=== PATIENT | female | born 1965 | race Caucasian/White ===

== ENCOUNTER 2017-02-20 14:15 | Emergency (ER) | payer MEDICAID ==
[~2017-02-20] VITALS: Ht 167.6 cm; Wt 84.1 kg
[~2017-02-20 14:15] MED LIST: ATOR10TA84 PO; INSLAN SQ; INSNOV SQ; LEVO50TA4 PO; LISI-660 PO; METF500T4 PO; QUET400T PO; SERT50TA12 PO
[2017-02-20] MEDS ORDERED: LAMO25 PO (14:18)
[2017-02-20] MEDS ORDERED: TRAZ-144 PO (14:18)
[2017-02-20 14:28] LABS: GLUCOSE,POINT OF CARE 428 MG/DL (70-110)
[2017-02-20 14:45] LABS: BASOPHILS % (AUTO) 0.4 % (0.0-2.0); EOSINOPHILS % (AUTO) 0.6 % (1.0-6.0); HEMATOCRIT 42.8 % (36-46); HEMOGLOBIN 14.4 g/dL (12.0-16.0); LYMPHOCYTES % (AUTO) 23.1 % (22.0-44.0); MEAN CORPUSCULAR HEMOGLOBIN 28.5 pg (26.0-34.0); MEAN CORPUSCULAR HGB CONC 33.6 G/dL (31.0-37.0); MEAN CORPUSCULAR VOLUME 85 fL (80-100); MONOCYTES # (AUTO) 0.4 K/uL (0.1-1.0); MONOCYTES % (AUTO) 5.1 % (2.0-9.0); NEUTROPHILS # (AUTO) 6.1 K/uL (1.8-7.7); NEUTROPHILS % (AUTO) 70.8 % (40.0-70.0); PLATELET COUNT (AUTO) 185 K/uL (150-450); RED BLOOD CELL COUNT(AUTO) 5.06 MIL/uL (4.00-5.20); RED CELL DISTRIBUTION WIDTH 14.2 % (11.5-14.5); WHITE BLOOD COUNT (AUTO) 8.7 K/uL (4.5-11.0)
[2017-02-20 15:12] LABS: APPEARANCE,URINE CLEAR (CLEAR); GLUCOSE, URINE (UA) >=1000 mg/dL (NEGATIVE); KETONES,URINE NEGATIVE (NEGATIVE); LEUKOCYTE ESTERASE ,URINE NEGATIVE (NEGATIVE); OCCULT BLOOD,URINE NEGATIVE (NEGATIVE); PH,URINE 5.5 (5.0-8.0); PROTEIN,URINE NEGATIVE (NEGATIVE)
[2017-02-20 15:23] LABS: RBC,URINE 0-2 /HPF (0-2); SQUAMOUS EPITHELIAL CELL,UR Moderate /LPF (None Seen); WBC,URINE 0-2 /HPF (0-5)
[2017-02-20 15:42] LABS: ALBUMIN 3.7 g/dL (3.4-5.0); BILIRUBIN,TOTAL 0.5 mg/dL (0.1-1.0); CALCIUM, TOTAL 9.7 mg/dL (8.8-10.5); POTASSIUM 4.8 mmol/L (3.5-5.1); TOTAL PROTEIN, SERUM 7.9 g/dL (6.4-8.2)
[2017-02-20] MEDS ORDERED: SODIUM CHLORIDE 0.9% 1,000 ML IV ONE ×2 (16:00→17:45)
[2017-02-20] MEDS ORDERED: INSULIN REGULAR, HUMAN 100 UNITS/ML IVP ONE ×2 (16:00→19:15)
[2017-02-20 16:56] LABS: THYROID STIMULATING HORMONE 2.73 uIU/mL (0.36-3.74)
[2017-02-20] MEDS ORDERED: ONDANSETRON HCL 4 MG/2 ML VIAL IVP ONE (17:15)
[2017-02-20] MEDS ORDERED: DONNATAL/LIDOCAINE/MAALOX 55 ML BOTTLE PO ONE (17:15)
[2017-02-20 17:37] LABS: GLUCOSE,POINT OF CARE 258 MG/DL (70-110)
[2017-02-20 18:42] LABS: GLUCOSE,POINT OF CARE 252 MG/DL (70-110)
[2017-02-20 19:32] LABS: GLUCOSE,POINT OF CARE 236 MG/DL (70-110)
[2017-02-20 20:17] LABS: GLUCOSE,POINT OF CARE 261 MG/DL (70-110)
[2017-02-20 21:02] LABS: GLUCOSE,POINT OF CARE 228 MG/DL (70-110)
[2017-02-20 21:14] VITALS: BP 123/72
== END 2017-02-20 21:17 | disposition home or self-care (01) ==
LOC: EMS 14:16
DX: E11.65 Type 2 diabetes mellitus with hyperglycemia (principal); E03.9 Hypothyroidism, unspecified; F20.9 Schizophrenia, unspecified; R11.2 Nausea with vomiting, unspecified; R19.7 Diarrhea, unspecified
CPT/HCPCS: 36415; 80053; 81001; 82962; 84443; 85025; 96361; 96374; 96375; 96376; 99285; J1815; J2405; J7030; Z7610; 99284

== ENCOUNTER 2017-03-26 15:09 | Inpatient (IN) | payer MEDICAID ==
[~2017-03-26] VITALS: Ht 167.6 cm; Wt 86.9 kg
[~2017-03-26 15:09] MED LIST changes: +LAMO25 PO; -QUET400T PO; +TRAZ-144 PO
[2017-03-26 15:32] LABS: BASOPHILS # (AUTO) 0.04 K/uL (0.00-0.20); BASOPHILS % (AUTO) 0.5 % (0.0-2.0); EOSINOPHILS # (AUTO) 0.08 K/uL (0.00-0.70); EOSINOPHILS % (AUTO) 1.09 % (1.0-6.0); GLUCOSE,POINT OF CARE 377 MG/DL (70-110); HEMATOCRIT 42.7 % (36-46); LYMPHOCYTES # (AUTO) 1.9 K/uL (1.0-4.8); LYMPHOCYTES % (AUTO) 25.4 % (22.0-44.0); MEAN CORPUSCULAR HEMOGLOBIN 28.1 pg (26.0-34.0); MEAN CORPUSCULAR HGB CONC 32.8 G/dL (31.0-37.0); MEAN CORPUSCULAR VOLUME 86 fL (80-100); MONOCYTES # (AUTO) 0.5 K/uL (0.1-1.0); MONOCYTES % (AUTO) 6.2 % (2.0-9.0); NEUTROPHILS # (AUTO) 4.9 K/uL (1.8-7.7); NEUTROPHILS % (AUTO) 66.9 % (40.0-70.0); PLATELET COUNT (AUTO) 178 K/uL (150-450); RED BLOOD CELL COUNT(AUTO) 4.98 MIL/uL (4.00-5.20); WHITE BLOOD COUNT (AUTO) 7.3 K/uL (4.5-11.0)
[2017-03-26 15:41] LABS: ANION GAP 11 mmol/L (8-16); CALCIUM, TOTAL 8.9 mg/dL (8.8-10.5); CARBON DIOXIDE 24 mmol/L (22-29); CHLORIDE 100 mmol/L (98-107); GLOMERULAR FILTR. RATE CALC 48 mL/min (>60); POTASSIUM 4.3 mmol/L (3.5-5.1); SODIUM SERUM 135 mmol/L (136-145); UREA NITROGEN, BLOOD 16 mg/dL (7-18)
[2017-03-26 15:46] LABS: ALANINE AMINOTRANSFERASE 27 U/L (12-78); ALBUMIN 3.8 g/dL (3.4-5.0); ASPARTATE AMINOTRANSFERASE 18 U/L (15-37); BILIRUBIN,TOTAL 0.4 mg/dL (0.1-1.0)
[2017-03-26] MEDS ORDERED: MAGNESIUM HYDROXIDE SUSPENSION 30 ML UDCUP PO PRN (16:30)
[2017-03-26] MEDS ORDERED: INSULIN REGULAR, HUMAN 100 UNITS/ML SQ ONE (16:30)
[2017-03-26] MEDS ORDERED: LOPERAMIDE HCL 2 MG CAPSULE PO PRN (16:30)
[2017-03-26] MEDS ORDERED: GuaiFENesin/D-METHORPHAN [SUGAR-FREE] 200-20MG/10 ML SYRUP UDCUP PO PRN (16:30)
[2017-03-26] MEDS ORDERED: TUBERCULIN, PURIFIED PROTEIN DERIVATIVE 5 TU/0.1 ML SYG ID ONE (16:30)
[2017-03-26] MEDS ORDERED: MAG HYDROX/AL HYDROX/SIMETH ES 30 ML SUSPENSION UDCUP PO PRN (16:30)
[2017-03-26] MEDS ORDERED: DiphenhydrAMINE HCL 50 MG CAPSULE PO ONE (16:30)
[2017-03-26] MEDS ORDERED: QUEtiapine FUMARATE 100 MG TABLET PO PRN (16:30)
[2017-03-26] MEDS ORDERED: PROMETHAZINE HCL 25 MG TABLET PO PRN (16:30)
[2017-03-26] MEDS ORDERED: ACETAMINOPHEN 325 MG TABLET PO PRN (16:30)
[2017-03-26] MEDS ORDERED: HydrOXYzine PAMOATE 50 MG CAPSULE PO PRN (16:30)
[2017-03-26] MEDS ORDERED: LORazepam 2 MG TABLET PO ONE (16:30)
[2017-03-26] MEDS ORDERED: ZOLPIDEM TARTRATE 10 MG TABLET PO PRN (16:30)
[2017-03-26] MEDS ORDERED: HALOPERIDOL 5 MG TABLET PO ONE (16:30)
[2017-03-26 16:57] LABS: APPEARANCE,URINE CLEAR (CLEAR); GLUCOSE, URINE (UA) >=1000 mg/dL (NEGATIVE); KETONES,URINE NEGATIVE (NEGATIVE); LEUKOCYTE ESTERASE ,URINE NEGATIVE (NEGATIVE); OCCULT BLOOD,URINE NEGATIVE (NEGATIVE); PROTEIN,URINE NEGATIVE (NEGATIVE)
[2017-03-26 16:58] LABS: ADD UA MICROSCOPIC YES
[2017-03-26 17:09] LABS: SQUAMOUS EPITHELIAL CELL,UR Moderate /LPF (None Seen)
[2017-03-26 17:11] LABS: RBC,URINE 0-2 /HPF (0-2)
[2017-03-26 17:43] LABS: GLUCOSE,POINT OF CARE 332 MG/DL (70-110)
[2017-03-26] MEDS: THIAMINE HCL 100 MG TABLET PO SCH (19:40)
[2017-03-26 19:42] LABS: GLUCOSE COMMENT 1 Doctor Notified; GLUCOSE,POINT OF CARE 272 MG/DL (70-110)
[2017-03-26] MEDS ORDERED: INFLUENZA VIRUS VACCINE QVS 2017-18 (3YR+)/PF 60 MCG/0.5 ML SYRINGE IM ONE (20:45)
[2017-03-26 20:47] VITALS: BP 128/77
[2017-03-26] MEDS ORDERED: QUEtiapine FUMARATE 200 MG TABLET PO SCH (21:00)
[2017-03-26] MEDS ORDERED: GLUCAGON,HUMAN RECOMBINANT 1 MG VIAL IM PRN (22:00)
[2017-03-27] MEDS: INSULIN ASPART 100 UNITS/ML SQ PRN ×4 (06:29→20:37)
[2017-03-27] MEDS: LEVOTHYROXINE SODIUM 50 MCG TABLET PO SCH (06:33)
[2017-03-27 06:34] LABS: GLUCOSE,POINT OF CARE 321 MG/DL (70-110)
[2017-03-27 06:36] VITALS: BP 116/67
[2017-03-27] MEDS: MetFORMIN HCL 500 MG TABLET PO SCH ×2 (06:49→16:35)
[2017-03-27 08:00] VITALS: BP 97/63
[2017-03-27 08:20] LABS: BASOPHILS # (AUTO) 0.03 K/uL (0.00-0.20); BASOPHILS % (AUTO) 0.4 % (0.0-2.0); EOSINOPHILS # (AUTO) 0.08 K/uL (0.00-0.70); EOSINOPHILS % (AUTO) 1.09 % (1.0-6.0); HEMATOCRIT 37.6 % (36-46); HEMOGLOBIN 12.4 g/dL (12.0-16.0); LYMPHOCYTES # (AUTO) 2.6 K/uL (1.0-4.8); MEAN CORPUSCULAR HEMOGLOBIN 28.5 pg (26.0-34.0); MEAN CORPUSCULAR HGB CONC 33.1 G/dL (31.0-37.0); MEAN CORPUSCULAR VOLUME 86 fL (80-100); MONOCYTES # (AUTO) 0.5 K/uL (0.1-1.0); MONOCYTES % (AUTO) 6.3 % (2.0-9.0); NEUTROPHILS # (AUTO) 4.5 K/uL (1.8-7.7); NEUTROPHILS % (AUTO) 58.2 % (40.0-70.0); PLATELET COUNT (AUTO) 145 K/uL (150-450); RED BLOOD CELL COUNT(AUTO) 4.36 MIL/uL (4.00-5.20); WHITE BLOOD COUNT (AUTO) 7.7 K/uL (4.5-11.0)
[2017-03-27 08:45] LABS: HEMOGLOBIN A1C 10.9 % (4.5-6.2)
[2017-03-27] MEDS: LamoTRIgine 25 MG TABLET PO SCH (08:58)
[2017-03-27] MEDS: MULTIVITAMINS WITH MINERALS, THERAPEUTIC TABLET PO SCH (08:58)
[2017-03-27] MEDS: LISINOPRIL 5 MG TABLET PO SCH ×2 (08:58→16:35)
[2017-03-27] MEDS: FOLIC ACID 1 MG TABLET PO SCH (08:58)
[2017-03-27] MEDS: INSULIN DETEMIR 100 UNITS/ML SQ SCH (08:58)
[2017-03-27] MEDS: THIAMINE HCL 100 MG TABLET PO SCH ×2 (09:00→16:35)
[2017-03-27] MEDS ORDERED: ATORVASTATIN CALCIUM 10 MG TABLET PO SCH (09:00)
[2017-03-27 09:31] LABS: ALANINE AMINOTRANSFERASE 28 U/L (12-78); ALBUMIN 3.1 g/dL (3.4-5.0); ANION GAP 6 mmol/L (8-16); ASPARTATE AMINOTRANSFERASE 16 U/L (15-37); BILIRUBIN,TOTAL 0.4 mg/dL (0.1-1.0); CALCIUM, TOTAL 8.3 mg/dL (8.8-10.5); CARBON DIOXIDE 26 mmol/L (22-29); CHLORIDE 105 mmol/L (98-107); CHOL/HDL RATIO 5.2 (3.9-5.7); CREATININE 0.85 mg/dL (0.60-1.30); GLOMERULAR FILTR. RATE CALC > 60 mL/min (>60); POTASSIUM 4.2 mmol/L (3.5-5.1); SODIUM SERUM 137 mmol/L (136-145); THYROID STIMULATING HORMONE 4.12 uIU/mL (0.36-3.74); TOTAL PROTEIN, SERUM 6.5 g/dL (6.4-8.2); UREA NITROGEN, BLOOD 18 mg/dL (7-18)
[2017-03-27 11:38] LABS: GLUCOSE COMMENT 1 Received Meds; GLUCOSE,POINT OF CARE 345 MG/DL (70-110)
[2017-03-27 16:20] VITALS: BP 117/64
[2017-03-27 16:44] LABS: GLUCOSE COMMENT 1 Received Meds; GLUCOSE,POINT OF CARE 247 MG/DL (70-110)
[2017-03-27 20:12] LABS: GLUCOSE COMMENT 1 Received Meds; GLUCOSE,POINT OF CARE 193 MG/DL (70-110)
[2017-03-27] MEDS: SIMVASTATIN 20 MG TABLET PO SCH (20:28)
[2017-03-27] MEDS ORDERED: QUEtiapine FUMARATE 200 MG TABLET PO SCH (21:00)
[2017-03-28] MEDS: LEVOTHYROXINE SODIUM 50 MCG TABLET PO SCH (06:37)
[2017-03-28] MEDS: MetFORMIN HCL 500 MG TABLET PO SCH ×2 (06:37→17:07)
[2017-03-28] MEDS: INSULIN ASPART 100 UNITS/ML SQ PRN ×3 (06:38→17:53)
[2017-03-28 06:44] LABS: GLUCOSE COMMENT 1 Received Meds; GLUCOSE,POINT OF CARE 261 MG/DL (70-110)
[2017-03-28 09:00] VITALS: BP 102/61
[2017-03-28] MEDS: MULTIVITAMINS WITH MINERALS, THERAPEUTIC TABLET PO SCH (09:38)
[2017-03-28] MEDS: THIAMINE HCL 100 MG TABLET PO SCH ×2 (09:38→17:07)
[2017-03-28] MEDS: FOLIC ACID 1 MG TABLET PO SCH (09:38)
[2017-03-28] MEDS: LISINOPRIL 5 MG TABLET PO SCH ×2 (09:38→17:07)
[2017-03-28] MEDS: NALTREXONE HCL 50 MG TABLET PO SCH (09:38)
[2017-03-28] MEDS: LamoTRIgine 25 MG TABLET PO SCH (09:38)
[2017-03-28] MEDS: INSULIN DETEMIR 100 UNITS/ML SQ SCH (09:43)
[2017-03-28 12:08] LABS: GLUCOSE,POINT OF CARE 344 MG/DL (70-110)
[2017-03-28 16:33] LABS: GLUCOSE,POINT OF CARE 321 MG/DL (70-110)
[2017-03-28] MEDS: LORazepam 2 MG TABLET PO PRN (19:22)
[2017-03-28] MEDS: SIMVASTATIN 20 MG TABLET PO SCH (20:36)
[2017-03-28 20:40] LABS: GLUCOSE,POINT OF CARE 219 MG/DL (70-110)
[2017-03-28] MEDS ORDERED: QUEtiapine FUMARATE 300 MG TABLET PO SCH (21:00)
[2017-03-29 06:04] VITALS: BP 100/60
[2017-03-29] MEDS: LEVOTHYROXINE SODIUM 50 MCG TABLET PO SCH (06:07)
[2017-03-29] MEDS: MetFORMIN HCL 500 MG TABLET PO SCH ×2 (06:07→17:54)
[2017-03-29] MEDS: INSULIN ASPART 100 UNITS/ML SQ PRN ×4 (07:08→21:00)
[2017-03-29 08:46] VITALS: BP 122/81
[2017-03-29] MEDS: LISINOPRIL 5 MG TABLET PO SCH ×2 (09:08→17:54)
[2017-03-29] MEDS: NALTREXONE HCL 50 MG TABLET PO SCH (09:08)
[2017-03-29] MEDS: MULTIVITAMINS WITH MINERALS, THERAPEUTIC TABLET PO SCH (09:08)
[2017-03-29] MEDS: LamoTRIgine 25 MG TABLET PO SCH (09:08)
[2017-03-29] MEDS: THIAMINE HCL 100 MG TABLET PO SCH ×2 (09:09→17:54)
[2017-03-29] MEDS: FOLIC ACID 1 MG TABLET PO SCH (09:09)
[2017-03-29] MEDS: INSULIN DETEMIR 100 UNITS/ML SQ SCH (09:11)
[2017-03-29] MEDS: LORazepam 2 MG TABLET PO PRN ×2 (09:16→14:21)
[2017-03-29 11:47] LABS: GLUCOSE,POINT OF CARE 314 MG/DL (70-110)
[2017-03-29 12:00] LABS: GLUCOSE,POINT OF CARE 372 MG/DL (70-110)
[2017-03-29 19:45] LABS: GLUCOSE COMMENT 1 Received Meds; GLUCOSE,POINT OF CARE 279 MG/DL (70-110)
[2017-03-29] MEDS: QUEtiapine FUMARATE 200 MG TABLET PO SCH (21:42)
[2017-03-29] MEDS: SIMVASTATIN 20 MG TABLET PO SCH (21:42)
[2017-03-30 03:48] VITALS: BP 114/82
[2017-03-30 05:00] LABS: GLUCOSE COMMENT 1 Received Meds; GLUCOSE,POINT OF CARE 288 MG/DL (70-110)
[2017-03-30] MEDS: MetFORMIN HCL 500 MG TABLET PO SCH ×2 (06:41→16:41)
[2017-03-30] MEDS: LEVOTHYROXINE SODIUM 50 MCG TABLET PO SCH (06:41)
[2017-03-30] MEDS: INSULIN ASPART 100 UNITS/ML SQ PRN ×4 (06:42→20:46)
[2017-03-30 08:24] VITALS: BP 100/58
[2017-03-30] MEDS: LamoTRIgine 25 MG TABLET PO SCH (08:53)
[2017-03-30] MEDS: THIAMINE HCL 100 MG TABLET PO SCH ×2 (08:53→16:41)
[2017-03-30] MEDS: MULTIVITAMINS WITH MINERALS, THERAPEUTIC TABLET PO SCH (08:53)
[2017-03-30] MEDS: NALTREXONE HCL 50 MG TABLET PO SCH (08:53)
[2017-03-30] MEDS: FOLIC ACID 1 MG TABLET PO SCH (08:53)
[2017-03-30 09:00] VITALS: BP 94/63
[2017-03-30] MEDS: LISINOPRIL 5 MG TABLET PO SCH ×2 (09:00→16:41)
[2017-03-30] MEDS: INSULIN DETEMIR 100 UNITS/ML SQ SCH (09:19)
[2017-03-30 11:48] LABS: GLUCOSE,POINT OF CARE 257 MG/DL (70-110)
[2017-03-30 11:48] LABS: GLUCOSE,POINT OF CARE 314 MG/DL (70-110)
[2017-03-30 16:00] VITALS: BP 108/68
[2017-03-30 16:48] LABS: GLUCOSE,POINT OF CARE 259 MG/DL (70-110)
[2017-03-30] MEDS: SIMVASTATIN 20 MG TABLET PO SCH (20:25)
[2017-03-30] MEDS: QUEtiapine FUMARATE 200 MG TABLET PO SCH (20:25)
[2017-03-30 21:02] LABS: GLUCOSE,POINT OF CARE 223 MG/DL (70-110)
[2017-03-31 00:13] LABS: GLUCOSE,POINT OF CARE 279 MG/DL (70-110)
[2017-03-31 06:32] VITALS: BP 106/70
[2017-03-31 06:47] LABS: GLUCOSE,POINT OF CARE 312 MG/DL (70-110)
[2017-03-31] MEDS: MetFORMIN HCL 500 MG TABLET PO SCH ×2 (06:51→16:16)
[2017-03-31] MEDS: LEVOTHYROXINE SODIUM 50 MCG TABLET PO SCH (06:51)
[2017-03-31] MEDS: INSULIN ASPART 100 UNITS/ML SQ PRN ×4 (06:52→21:22)
[2017-03-31 08:21] VITALS: BP 99/60
[2017-03-31] MEDS: LamoTRIgine 25 MG TABLET PO SCH (09:24)
[2017-03-31] MEDS: NALTREXONE HCL 50 MG TABLET PO SCH (09:24)
[2017-03-31] MEDS: LISINOPRIL 5 MG TABLET PO SCH ×2 (09:24→16:16)
[2017-03-31] MEDS: MULTIVITAMINS WITH MINERALS, THERAPEUTIC TABLET PO SCH (09:24)
[2017-03-31] MEDS: FOLIC ACID 1 MG TABLET PO SCH (09:24)
[2017-03-31] MEDS: THIAMINE HCL 100 MG TABLET PO SCH ×2 (09:24→16:16)
[2017-03-31] MEDS: INSULIN DETEMIR 100 UNITS/ML SQ SCH (09:27)
[2017-03-31 11:33] LABS: GLUCOSE,POINT OF CARE 397 MG/DL (70-110)
[2017-03-31 16:04] VITALS: BP 126/64
[2017-03-31] MEDS: LORazepam 2 MG TABLET PO PRN (16:16)
[2017-03-31 16:47] LABS: GLUCOSE COMMENT 1 Received Meds; GLUCOSE,POINT OF CARE 290 MG/DL (70-110)
[2017-03-31] MEDS: SIMVASTATIN 20 MG TABLET PO SCH (20:10)
[2017-03-31] MEDS: QUEtiapine FUMARATE 200 MG TABLET PO SCH (20:10)
[2017-03-31 20:57] LABS: GLUCOSE COMMENT 1 Received Meds; GLUCOSE,POINT OF CARE 356 MG/DL (70-110)
[2017-04-01 06:38] LABS: GLUCOSE COMMENT 1 Received Meds; GLUCOSE,POINT OF CARE 270 MG/DL (70-110)
[2017-04-01] MEDS: LEVOTHYROXINE SODIUM 50 MCG TABLET PO SCH (06:43)
[2017-04-01] MEDS: INSULIN ASPART 100 UNITS/ML SQ PRN ×4 (06:43→20:35)
[2017-04-01] MEDS: MetFORMIN HCL 500 MG TABLET PO SCH ×2 (06:43→16:44)
[2017-04-01 08:22] VITALS: BP 122/66
[2017-04-01] MEDS: NALTREXONE HCL 50 MG TABLET PO SCH (09:12)
[2017-04-01] MEDS: LISINOPRIL 5 MG TABLET PO SCH ×2 (09:12→16:44)
[2017-04-01] MEDS: FOLIC ACID 1 MG TABLET PO SCH (09:12)
[2017-04-01] MEDS: THIAMINE HCL 100 MG TABLET PO SCH ×2 (09:12→16:44)
[2017-04-01] MEDS: MULTIVITAMINS WITH MINERALS, THERAPEUTIC TABLET PO SCH (09:12)
[2017-04-01] MEDS: LamoTRIgine 25 MG TABLET PO SCH (09:12)
[2017-04-01] MEDS: INSULIN DETEMIR 100 UNITS/ML SQ SCH (09:16)
[2017-04-01 11:22] LABS: GLUCOSE,POINT OF CARE 327 MG/DL (70-110)
[2017-04-01 16:12] VITALS: BP 116/69
[2017-04-01 16:58] LABS: GLUCOSE COMMENT 1 Received Meds; GLUCOSE,POINT OF CARE 250 MG/DL (70-110)
[2017-04-01] MEDS: SIMVASTATIN 20 MG TABLET PO SCH (20:14)
[2017-04-01] MEDS: QUEtiapine FUMARATE 200 MG TABLET PO SCH (20:14)
[2017-04-01 20:28] LABS: GLUCOSE COMMENT 1 Received Meds; GLUCOSE,POINT OF CARE 344 MG/DL (70-110)
[2017-04-01] MEDS ORDERED: QUEtiapine FUMARATE 200 MG TABLET PO SCH (21:00)
[2017-04-02 02:08] VITALS: BP 108/71
[2017-04-02 06:08] LABS: GLUCOSE COMMENT 1 Received Meds; GLUCOSE,POINT OF CARE 309 MG/DL (70-110)
[2017-04-02] MEDS: MetFORMIN HCL 500 MG TABLET PO SCH ×2 (06:27→16:35)
[2017-04-02] MEDS: LEVOTHYROXINE SODIUM 50 MCG TABLET PO SCH (06:27)
[2017-04-02] MEDS: INSULIN ASPART 100 UNITS/ML SQ PRN ×4 (06:43→21:16)
[2017-04-02 08:26] VITALS: BP 101/51
[2017-04-02] MEDS: NALTREXONE HCL 50 MG TABLET PO SCH (08:38)
[2017-04-02] MEDS: LamoTRIgine 25 MG TABLET PO SCH (08:38)
[2017-04-02] MEDS: THIAMINE HCL 100 MG TABLET PO SCH ×2 (08:38→16:35)
[2017-04-02] MEDS: MULTIVITAMINS WITH MINERALS, THERAPEUTIC TABLET PO SCH (08:38)
[2017-04-02] MEDS: LISINOPRIL 5 MG TABLET PO SCH ×2 (08:38→16:35)
[2017-04-02] MEDS: FOLIC ACID 1 MG TABLET PO SCH (08:38)
[2017-04-02] MEDS: INSULIN DETEMIR 100 UNITS/ML SQ SCH (08:41)
[2017-04-02 11:57] LABS: GLUCOSE COMMENT 1 Received Meds; GLUCOSE,POINT OF CARE 286 MG/DL (70-110)
[2017-04-02] MEDS ORDERED: QUET200T29 PO (15:00)
[2017-04-02] MEDS ORDERED: LAMO25 PO (15:00)
[2017-04-02] MEDS ORDERED: NALT50TA PO (15:00)
[2017-04-02] MEDS: LORazepam 2 MG TABLET PO PRN (16:35)
[2017-04-02 16:48] LABS: GLUCOSE,POINT OF CARE 396 MG/DL (70-110)
[2017-04-02 16:50] VITALS: BP 113/67
[2017-04-02] MEDS: SIMVASTATIN 20 MG TABLET PO SCH (20:35)
[2017-04-02 20:47] LABS: GLUCOSE,POINT OF CARE 355 MG/DL (70-110)
[2017-04-02] MEDS ORDERED: QUEtiapine FUMARATE 200 MG TABLET PO SCH ×2 (21:00)
[2017-04-03 01:28] VITALS: BP 109/55
[2017-04-03] MEDS ORDERED: THIA100 PO (04:28)
[2017-04-03] MEDS ORDERED: SIMV-260 PO (04:28)
[2017-04-03] MEDS ORDERED: FOLI1 PO (04:28)
[2017-04-03] MEDS ORDERED: NALT50TA6 PO (04:28)
[2017-04-03] MEDS ORDERED: QUET200T PO (04:28)
[2017-04-03] MEDS ORDERED: LAMO25 PO (04:28)
[2017-04-03 06:18] LABS: GLUCOSE,POINT OF CARE 336 MG/DL (70-110)
[2017-04-03] MEDS: LEVOTHYROXINE SODIUM 50 MCG TABLET PO SCH (06:47)
[2017-04-03] MEDS: MetFORMIN HCL 500 MG TABLET PO SCH (06:47)
[2017-04-03] MEDS: INSULIN ASPART 100 UNITS/ML SQ PRN ×2 (06:57→10:58)
[2017-04-03] MEDS: FOLIC ACID 1 MG TABLET PO SCH (08:50)
[2017-04-03] MEDS: LamoTRIgine 25 MG TABLET PO SCH (08:50)
[2017-04-03] MEDS: NALTREXONE HCL 50 MG TABLET PO SCH (08:51)
[2017-04-03] MEDS: THIAMINE HCL 100 MG TABLET PO SCH (08:51)
[2017-04-03] MEDS: MULTIVITAMINS WITH MINERALS, THERAPEUTIC TABLET PO SCH (08:51)
[2017-04-03] MEDS: LISINOPRIL 5 MG TABLET PO SCH (08:51)
[2017-04-03] MEDS: INSULIN DETEMIR 100 UNITS/ML SQ SCH (08:57)
[2017-04-03 09:03] LABS: GLUCOSE,POINT OF CARE 317 MG/DL (70-110)
[2017-04-03 09:07] VITALS: BP 125/62
[2017-04-03] MEDS ORDERED: LEVO50TA11 PO (09:49)
[2017-04-03 11:02] LABS: GLUCOSE,POINT OF CARE 349 MG/DL (70-110)
== END 2017-04-03 13:30 | disposition home or self-care (01) | DRG 750 ==
LOC: EMS 15:14 → B3A 17:10 → B2S 04-02 18:19
PROVIDERS: ADMIT Psychiatry & Neurology Psychiatry; ATTEND Psychiatry & Neurology Psychiatry
DX: F25.9 Schizoaffective disorder, unspecified (principal); E11.9 Type 2 diabetes mellitus without complications; R45.851 Suicidal ideations; I10 Essential (primary) hypertension; E03.9 Hypothyroidism, unspecified; E66.9 Obesity, unspecified; E78.5 Hyperlipidemia, unspecified; F17.200 Nicotine dependence, unspecified, uncomplicated; F31.9 Bipolar disorder, unspecified; Z68.29 Body mass index [BMI] 29.0-29.9, adult; Z79.899 Other long term (current) drug therapy; Z90.49 Acquired absence of other specified parts of digestive tract; Z28.21 Immunization not carried out because of patient refusal
CPT/HCPCS: 82962; 83036; 84439; 84443; 86592; 96372; 99285; G0480; J1815

== ENCOUNTER 2017-11-28 19:16 | Inpatient (IN) | payer MEDICAID ==
[~2017-11-28] VITALS: Ht 167.6 cm; Wt 95.4 kg
[~2017-11-28 19:16] MED LIST changes: -ATOR10TA84 PO; +FOLI1 PO; -INSNOV SQ; +LEVO50TA11 PO; -LEVO50TA4 PO; +METF-444 PO; -METF500T4 PO; +NALT50TA PO; +NALT50TA6 PO; +QUET200T PO; +QUET200T29 PO; -SERT50TA12 PO; +SIMV-260 PO; -TRAZ-144 PO
[2017-11-28 19:33] LABS: GLUCOSE,POINT OF CARE 375 MG/DL (70-110)
[2017-11-28] MEDS ORDERED: RISP2 PO (20:08)
[2017-11-28] MEDS ORDERED: GABA-529 PO (20:08)
[2017-11-28] MEDS ORDERED: INSU100V SQ (20:08)
[2017-11-28] MEDS ORDERED: LAMO25 PO (20:08)
[2017-11-28] MEDS ORDERED: ASPI-556 PO (20:08)
[2017-11-28] MEDS ORDERED: TRAZ-147 PO (20:08)
[2017-11-28] MEDS ORDERED: ARIP10TA8 PO (20:08)
[2017-11-28] MEDS ORDERED: LISI-661 PO (20:08)
[2017-11-28] MEDS ORDERED: ATOR40TA28 PO (20:08)
[2017-11-28] MEDS ORDERED: METF500T6 PO (20:08)
[2017-11-28] MEDS ORDERED: SERT100T12 PO (20:08)
[2017-11-28] MEDS ORDERED: LEVO25TA9 PO (20:08)
[2017-11-28] MEDS ORDERED: LINA5TAB PO (20:08)
[2017-11-28] MEDS ORDERED: INSU100I26 SQ (20:08)
[2017-11-28 20:11] LABS: BASOPHILS % (AUTO) 0.6 % (0.0-2.0); EOSINOPHILS % (AUTO) 1.4 % (1.0-6.0); HEMATOCRIT 39.1 % (36-46); HEMOGLOBIN 13.1 g/dL (12.0-16.0); LYMPHOCYTES # (AUTO) 1.4 K/uL (1.0-4.8); LYMPHOCYTES % (AUTO) 14.2 % (22.0-44.0); MEAN CORPUSCULAR HEMOGLOBIN 28.1 pg (26.0-34.0); MEAN CORPUSCULAR HGB CONC 33.6 G/dL (31.0-37.0); MEAN CORPUSCULAR VOLUME 84 fL (80-100); MONOCYTES # (AUTO) 0.5 K/uL (0.1-1.0); MONOCYTES % (AUTO) 5.2 % (2.0-9.0); NEUTROPHILS # (AUTO) 7.5 K/uL (1.8-7.7); NEUTROPHILS % (AUTO) 78.6 % (40.0-70.0); PLATELET COUNT (AUTO) 149 K/uL (150-450); RED BLOOD CELL COUNT(AUTO) 4.67 MIL/uL (4.00-5.20)
[2017-11-28 20:52] LABS: ANION GAP 6 mmol/L (8-16); CARBON DIOXIDE 27 mmol/L (22-29); CHLORIDE 102 mmol/L (98-107); CREATININE 1.19 mg/dL (0.60-1.30); GLOMERULAR FILTR. RATE CALC 48 mL/min (>60); GLUCOSE,RANDOM 360 mg/dL (70-110); POTASSIUM 4.8 mmol/L (3.5-5.1); SODIUM SERUM 135 mmol/L (136-145); UREA NITROGEN, BLOOD 14 mg/dL (7-18)
[2017-11-28 20:57] LABS: AMPHET/METH SCREEN,URINE NEGATIVE (NEGATIVE); BARBITURATE SCREEN, URINE NEGATIVE (NEGATIVE); BENZODIAZEPINES SCREEN,URINE NEGATIVE (NEGATIVE); CANNABINOID SCREEN,URINE NEGATIVE (NEGATIVE); COCAINE SCREEN,URINE NEGATIVE (NEGATIVE); METHADONE SCREEN, URINE NEGATIVE (NEGATIVE); OPIATE SCREEN,URINE NEGATIVE (NEGATIVE)
[2017-11-28 20:59] LABS: ALANINE AMINOTRANSFERASE 30 U/L (12-78); ALBUMIN 3.2 g/dL (3.4-5.0); ALKALINE PHOSPHATASE 165 U/L (46-116); ASPARTATE AMINOTRANSFERASE 21 U/L (15-37); BILIRUBIN,TOTAL 0.5 mg/dL (0.1-1.0); TOTAL PROTEIN, SERUM 7.1 g/dL (6.4-8.2)
[2017-11-28 21:04] LABS: PHENCYCLIDINE SCREEN,URINE NEGATIVE (NEGATIVE)
[2017-11-28 21:22] LABS: APPEARANCE,URINE CLOUDY (CLEAR); BILIRUBIN,URINE NEGATIVE (NEGATIVE); GLUCOSE, URINE (UA) >=1000 mg/dL (NEGATIVE); KETONES,URINE NEGATIVE (NEGATIVE); LEUKOCYTE ESTERASE ,URINE NEGATIVE (NEGATIVE); NITRATE,URINE NEGATIVE (NEGATIVE); OCCULT BLOOD,URINE NEGATIVE (NEGATIVE); PROTEIN,URINE NEGATIVE (NEGATIVE); UROBILINOGEN,URINE 0.2 mg/dL (<=1.0)
[2017-11-28] MEDS ORDERED: INSULIN REGULAR, HUMAN 100 UNITS/ML SQ ONE (23:00)
[2017-11-28 23:13] LABS: BACTERIA,URINE None Seen /HPF (None Seen); RBC,URINE None Seen /HPF (0-2); SQUAMOUS EPITHELIAL CELL,UR Few /LPF (None Seen); WBC,URINE 0-2 /HPF (0-5)
[2017-11-29 00:28] LABS: GLUCOSE,POINT OF CARE 271 MG/DL (70-110)
[2017-11-29] MEDS ORDERED: HALOPERIDOL 5 MG TABLET PO PRN (03:00)
[2017-11-29] MEDS ORDERED: ZOLPIDEM TARTRATE 10 MG TABLET PO PRN (03:00)
[2017-11-29 06:38] LABS: GLUCOSE,POINT OF CARE 272 MG/DL (70-110)
[2017-11-29 08:18] LABS: CHOL/HDL RATIO 4.9 (3.9-5.7)
[2017-11-29 16:12] LABS: GLUCOMETER DEV NAME(LOC) BV2S 2; GLUCOSE,POINT OF CARE 375 MG/DL (70-110)
[2017-11-29] MEDS ORDERED: GLUCAGON,HUMAN RECOMBINANT 1 MG VIAL IM PRN (16:30)
[2017-11-29] MEDS: INSULIN LISPRO 100 UNITS/ML SQ PRN ×2 (17:00→21:00)
[2017-11-29 17:15] VITALS: BP 122/71
[2017-11-29] MEDS ORDERED: PNEUMOCOCCAL VACCINE POLYVALENT 0.5 ML VIAL [PPSV23] IM ONE (20:15)
[2017-11-29 21:43] LABS: GLUCOMETER DEV NAME(LOC) BV2S 2; GLUCOSE,POINT OF CARE 269 MG/DL (70-110)
[2017-11-29] MEDS: ATORVASTATIN CALCIUM 40 MG TABLET PO SCH (21:50)
[2017-11-30 05:51] VITALS: BP 120/82
[2017-11-30 06:24] LABS: GLUCOMETER DEV NAME(LOC) BV2S 2; GLUCOSE,POINT OF CARE 391 MG/DL (70-110)
[2017-11-30] MEDS: LEVOTHYROXINE SODIUM 25 MCG TABLET PO SCH (06:42)
[2017-11-30] MEDS: MetFORMIN HCL 500 MG TABLET PO SCH ×2 (06:42→17:44)
[2017-11-30] MEDS: INSULIN LISPRO 100 UNITS/ML SQ PRN ×4 (07:13→22:28)
[2017-11-30 08:30] VITALS: BP 124/68
[2017-11-30] MEDS: LISINOPRIL 10 MG TABLET PO SCH (08:44)
[2017-11-30] MEDS: LinaGLIPtin 5 MG TABLET PO SCH (08:45)
[2017-11-30] MEDS: LORazepam 2 MG TABLET PO PRN (09:19)
[2017-11-30 11:18] LABS: GLUCOMETER DEV NAME(LOC) BV2S 2; GLUCOSE,POINT OF CARE 261 MG/DL (70-110)
[2017-11-30] MEDS ORDERED: DOCUSATE SODIUM 100 MG CAPSULE PO PRN (13:00)
[2017-11-30] MEDS ORDERED: MAGNESIUM HYDROXIDE SUSPENSION 30 ML UDCUP PO PRN (13:00)
[2017-11-30] MEDS ORDERED: ONDANSETRON HCL 4 MG TABLET PO PRN (13:00)
[2017-11-30] MEDS ORDERED: ALBUTEROL SULFATE HFA 90 MCG/PUFF 8 GM INHALER IH PRN (13:00)
[2017-11-30] MEDS ORDERED: MAG HYDROX/AL HYDROX/SIMETH ES 30 ML SUSPENSION UDCUP PO PRN (13:00)
[2017-11-30] MEDS ORDERED: PETROLATUM,WHITE 71 GM JELLY TP PRN (13:00)
[2017-11-30] MEDS ORDERED: IBUPROFEN 400 MG TABLET PO PRN (13:00)
[2017-11-30] MEDS ORDERED: ACETAMINOPHEN 325 MG TABLET PO PRN (13:00)
[2017-11-30 16:02] VITALS: BP 115/67
[2017-11-30] MEDS: INSULIN GLARGINE,HUM.REC.ANLOG 100 UNITS/ML SQ SCH (17:41)
[2017-11-30 18:18] LABS: GLUCOMETER DEV NAME(LOC) BV2S 2; GLUCOSE,POINT OF CARE 334 MG/DL (70-110)
[2017-11-30] MEDS: RisperiDONE 2 MG TABLET PO SCH (21:38)
[2017-11-30] MEDS: ATORVASTATIN CALCIUM 40 MG TABLET PO SCH (21:38)
[2017-11-30] MEDS: TraZODone HCL 100 MG TABLET PO SCH (21:39)
[2017-12-01 00:35] VITALS: BP 104/60
[2017-12-01 06:23] LABS: GLUCOMETER DEV NAME(LOC) BV2S 2; GLUCOSE,POINT OF CARE 300 MG/DL (70-110)
[2017-12-01] MEDS: LEVOTHYROXINE SODIUM 25 MCG TABLET PO SCH (06:56)
[2017-12-01] MEDS: INSULIN LISPRO 100 UNITS/ML SQ PRN ×4 (06:57→21:03)
[2017-12-01] MEDS: MetFORMIN HCL 500 MG TABLET PO SCH ×2 (07:06→16:30)
[2017-12-01 07:33] LABS: GLUCOMETER DEV NAME(LOC) BV2S 2; GLUCOSE,POINT OF CARE 252 MG/DL (70-110)
[2017-12-01 08:00] VITALS: BP 120/68
[2017-12-01 08:23] LABS: HEMOGLOBIN A1C 8.7 % (4.5-6.2)
[2017-12-01 08:43] LABS: CHOL/HDL RATIO 5.6 (3.9-5.7); THYROID STIMULATING HORMONE 6.02 uIU/mL (0.36-3.74)
[2017-12-01] MEDS: NICOTINE 14 MG/24 HOUR PATCH TD SCH (09:00)
[2017-12-01] MEDS: LISINOPRIL 10 MG TABLET PO SCH (09:43)
[2017-12-01] MEDS: LinaGLIPtin 5 MG TABLET PO SCH (09:43)
[2017-12-01] MEDS: GABAPENTIN 400 MG CAPSULE PO SCH ×3 (09:43→16:30)
[2017-12-01] MEDS: SERTRALINE HCL 100 MG TABLET PO SCH (09:43)
[2017-12-01] MEDS: INSULIN GLARGINE,HUM.REC.ANLOG 100 UNITS/ML SQ SCH ×2 (09:47→16:41)
[2017-12-01 10:14] LABS: GLUCOMETER DEV NAME(LOC) BV2S 2; GLUCOSE,POINT OF CARE 296 MG/DL (70-110)
[2017-12-01 11:02] LABS: GLUCOMETER DEV NAME(LOC) BV2S 2; GLUCOSE,POINT OF CARE 287 MG/DL (70-110)
[2017-12-01 16:11] VITALS: BP 102/65
[2017-12-01] MEDS: LORazepam 2 MG TABLET PO PRN (16:38)
[2017-12-01] MEDS ORDERED: MetFORMIN HCL 500 MG TABLET PO SCH (17:00)
[2017-12-01 17:23] LABS: GLUCOMETER DEV NAME(LOC) BV2S 2; GLUCOSE,POINT OF CARE 317 MG/DL (70-110)
[2017-12-01] MEDS: TraZODone HCL 100 MG TABLET PO SCH (20:37)
[2017-12-01] MEDS: RisperiDONE 2 MG TABLET PO SCH (20:37)
[2017-12-01] MEDS: ATORVASTATIN CALCIUM 40 MG TABLET PO SCH (20:37)
[2017-12-01 21:03] LABS: GLUCOMETER DEV NAME(LOC) BV2S 2; GLUCOSE,POINT OF CARE 300 MG/DL (70-110)
[2017-12-02 05:40] VITALS: BP 130/71
[2017-12-02] MEDS: LEVOTHYROXINE SODIUM 25 MCG TABLET PO SCH (06:32)
[2017-12-02] MEDS: MetFORMIN HCL 500 MG TABLET PO SCH ×2 (06:32→16:49)
[2017-12-02] MEDS: INSULIN LISPRO 100 UNITS/ML SQ PRN ×4 (06:35→20:37)
[2017-12-02 07:08] LABS: GLUCOMETER DEV NAME(LOC) BV2S 2; GLUCOSE,POINT OF CARE 295 MG/DL (70-110)
[2017-12-02 08:18] VITALS: BP 123/67
[2017-12-02] MEDS: NICOTINE 14 MG/24 HOUR PATCH TD SCH (09:00)
[2017-12-02] MEDS: GABAPENTIN 400 MG CAPSULE PO SCH ×3 (09:32→16:49)
[2017-12-02] MEDS: LISINOPRIL 10 MG TABLET PO SCH (09:32)
[2017-12-02] MEDS: LinaGLIPtin 5 MG TABLET PO SCH (09:32)
[2017-12-02] MEDS: SERTRALINE HCL 100 MG TABLET PO SCH (09:33)
[2017-12-02] MEDS: INSULIN GLARGINE,HUM.REC.ANLOG 100 UNITS/ML SQ SCH ×2 (09:40→16:51)
[2017-12-02 11:49] LABS: GLUCOMETER DEV NAME(LOC) BV2S 2; GLUCOSE,POINT OF CARE 254 MG/DL (70-110)
[2017-12-02 16:28] VITALS: BP 105/60
[2017-12-02 16:54] LABS: GLUCOMETER DEV NAME(LOC) BV2S 2; GLUCOSE,POINT OF CARE 273 MG/DL (70-110)
[2017-12-02] MEDS: RisperiDONE 2 MG TABLET PO SCH (20:25)
[2017-12-02] MEDS: TraZODone HCL 100 MG TABLET PO SCH (20:25)
[2017-12-02] MEDS: ATORVASTATIN CALCIUM 40 MG TABLET PO SCH (20:26)
[2017-12-02 21:18] LABS: GLUCOMETER DEV NAME(LOC) BV2S 2; GLUCOSE,POINT OF CARE 256 MG/DL (70-110)
[2017-12-03 03:30] VITALS: BP 110/62
[2017-12-03] MEDS: LEVOTHYROXINE SODIUM 25 MCG TABLET PO SCH (06:33)
[2017-12-03] MEDS: MetFORMIN HCL 500 MG TABLET PO SCH ×2 (06:33→16:24)
[2017-12-03] MEDS: INSULIN LISPRO 100 UNITS/ML SQ PRN ×4 (06:35→20:39)
[2017-12-03 07:09] LABS: GLUCOMETER DEV NAME(LOC) BV2S 2; GLUCOSE,POINT OF CARE 266 MG/DL (70-110)
[2017-12-03 08:28] VITALS: BP 105/68
[2017-12-03] MEDS: SERTRALINE HCL 100 MG TABLET PO SCH (08:28)
[2017-12-03] MEDS: GABAPENTIN 400 MG CAPSULE PO SCH ×3 (08:28→16:24)
[2017-12-03] MEDS: LISINOPRIL 10 MG TABLET PO SCH (08:29)
[2017-12-03] MEDS: NICOTINE 14 MG/24 HOUR PATCH TD SCH (08:29)
[2017-12-03] MEDS: LinaGLIPtin 5 MG TABLET PO SCH (08:29)
[2017-12-03] MEDS: LORazepam 2 MG TABLET PO PRN ×2 (09:40→16:24)
[2017-12-03 11:10] LABS: GLUCOMETER DEV NAME(LOC) BV2S 2; GLUCOSE,POINT OF CARE 377 MG/DL (70-110)
[2017-12-03] MEDS: INSULIN GLARGINE,HUM.REC.ANLOG 100 UNITS/ML SQ SCH ×2 (11:11→16:29)
[2017-12-03 16:01] VITALS: BP_SYST 104; BP_SYST 127; BP_DIAS 64; BP_DIAS 70
[2017-12-03 17:08] LABS: GLUCOMETER DEV NAME(LOC) BV2S 2; GLUCOSE,POINT OF CARE 244 MG/DL (70-110)
[2017-12-03] MEDS: TraZODone HCL 100 MG TABLET PO SCH (20:32)
[2017-12-03] MEDS: RisperiDONE 2 MG TABLET PO SCH (20:32)
[2017-12-03] MEDS: ATORVASTATIN CALCIUM 40 MG TABLET PO SCH (20:32)
[2017-12-03 21:18] LABS: GLUCOMETER DEV NAME(LOC) BV2S 2; GLUCOSE,POINT OF CARE 272 MG/DL (70-110)
[2017-12-04 01:40] VITALS: BP 106/66
[2017-12-04 06:31] LABS: GLUCOMETER DEV NAME(LOC) BV2S 2; GLUCOSE,POINT OF CARE 242 MG/DL (70-110)
[2017-12-04] MEDS: MetFORMIN HCL 500 MG TABLET PO SCH ×2 (06:35→16:55)
[2017-12-04] MEDS: LEVOTHYROXINE SODIUM 25 MCG TABLET PO SCH (06:35)
[2017-12-04] MEDS: INSULIN LISPRO 100 UNITS/ML SQ PRN ×4 (06:53→20:40)
[2017-12-04 08:25] VITALS: BP 113/62
[2017-12-04] MEDS: INSULIN GLARGINE,HUM.REC.ANLOG 100 UNITS/ML SQ SCH ×2 (09:56→16:49)
[2017-12-04] MEDS: GABAPENTIN 400 MG CAPSULE PO SCH ×3 (09:58→16:55)
[2017-12-04] MEDS: SERTRALINE HCL 100 MG TABLET PO SCH (09:58)
[2017-12-04] MEDS: LISINOPRIL 10 MG TABLET PO SCH (09:58)
[2017-12-04] MEDS: LinaGLIPtin 5 MG TABLET PO SCH (09:59)
[2017-12-04] MEDS: NICOTINE 14 MG/24 HOUR PATCH TD SCH (10:07)
[2017-12-04 15:14] LABS: GLUCOMETER DEV NAME(LOC) BV2S 2; GLUCOSE,POINT OF CARE 320 MG/DL (70-110)
[2017-12-04 16:02] VITALS: BP 106/64
[2017-12-04 17:02] LABS: GLUCOMETER DEV NAME(LOC) BV2S 2; GLUCOSE,POINT OF CARE 214 MG/DL (70-110)
[2017-12-04] MEDS ORDERED: LOPERAMIDE HCL 2 MG CAPSULE PO PRN (19:00)
[2017-12-04] MEDS: TraZODone HCL 100 MG TABLET PO SCH (20:31)
[2017-12-04] MEDS: RisperiDONE 2 MG TABLET PO SCH (20:31)
[2017-12-04] MEDS: ATORVASTATIN CALCIUM 40 MG TABLET PO SCH (20:31)
[2017-12-04 21:05] LABS: GLUCOMETER DEV NAME(LOC) BV2S 2; GLUCOSE,POINT OF CARE 199 MG/DL (70-110)
[2017-12-05 00:21] VITALS: BP 110/62
[2017-12-05] MEDS: MetFORMIN HCL 500 MG TABLET PO SCH ×2 (06:35→16:36)
[2017-12-05] MEDS: LEVOTHYROXINE SODIUM 25 MCG TABLET PO SCH (06:35)
[2017-12-05 06:41] LABS: GLUCOMETER DEV NAME(LOC) BV2S 2; GLUCOSE,POINT OF CARE 255 MG/DL (70-110)
[2017-12-05] MEDS: INSULIN LISPRO 100 UNITS/ML SQ PRN ×4 (07:05→21:39)
[2017-12-05 08:00] VITALS: BP 118/66
[2017-12-05] MEDS: GABAPENTIN 400 MG CAPSULE PO SCH ×3 (08:28→16:36)
[2017-12-05] MEDS: NICOTINE 14 MG/24 HOUR PATCH TD SCH (08:28)
[2017-12-05] MEDS: LISINOPRIL 10 MG TABLET PO SCH (08:28)
[2017-12-05] MEDS: SERTRALINE HCL 100 MG TABLET PO SCH (08:28)
[2017-12-05] MEDS: LinaGLIPtin 5 MG TABLET PO SCH (08:28)
[2017-12-05] MEDS: INSULIN GLARGINE,HUM.REC.ANLOG 100 UNITS/ML SQ SCH ×2 (09:00→16:46)
[2017-12-05 11:00] LABS: GLUCOMETER DEV NAME(LOC) BV2S 2; GLUCOSE,POINT OF CARE 253 MG/DL (70-110)
[2017-12-05 16:37] VITALS: BP 100/62
[2017-12-05 16:40] LABS: GLUCOMETER DEV NAME(LOC) BV2S 2; GLUCOSE,POINT OF CARE 262 MG/DL (70-110)
[2017-12-05] MEDS: ATORVASTATIN CALCIUM 40 MG TABLET PO SCH (20:56)
[2017-12-05] MEDS: TraZODone HCL 100 MG TABLET PO SCH (20:59)
[2017-12-05] MEDS: RisperiDONE 2 MG TABLET PO SCH (20:59)
[2017-12-05 21:13] LABS: GLUCOMETER DEV NAME(LOC) BV2S 2; GLUCOSE,POINT OF CARE 259 MG/DL (70-110)
[2017-12-06 01:45] VITALS: BP 118/64
[2017-12-06 06:35] LABS: GLUCOMETER DEV NAME(LOC) BV2S 2; GLUCOSE,POINT OF CARE 266 MG/DL (70-110)
[2017-12-06] MEDS: MetFORMIN HCL 500 MG TABLET PO SCH (06:54)
[2017-12-06] MEDS: LEVOTHYROXINE SODIUM 25 MCG TABLET PO SCH (06:54)
[2017-12-06] MEDS: INSULIN LISPRO 100 UNITS/ML SQ PRN ×2 (07:02→11:39)
[2017-12-06 08:00] VITALS: BP 114/56
[2017-12-06] MEDS: LinaGLIPtin 5 MG TABLET PO SCH (08:59)
[2017-12-06] MEDS: SERTRALINE HCL 100 MG TABLET PO SCH (09:00)
[2017-12-06] MEDS: NICOTINE 14 MG/24 HOUR PATCH TD SCH (09:00)
[2017-12-06] MEDS: LISINOPRIL 10 MG TABLET PO SCH (09:00)
[2017-12-06] MEDS: GABAPENTIN 400 MG CAPSULE PO SCH (09:00)
[2017-12-06] MEDS: INSULIN GLARGINE,HUM.REC.ANLOG 100 UNITS/ML SQ SCH (09:06)
[2017-12-06 11:45] LABS: GLUCOMETER DEV NAME(LOC) BV2S 2; GLUCOSE,POINT OF CARE 246 MG/DL (70-110)
== END 2017-12-06 13:25 | disposition home or self-care (01) | DRG 750 ==
LOC: EMS 19:17 → B2S 11-29 12:08
PROVIDERS: ADMIT Psychiatry & Neurology Psychiatry; ATTEND Psychiatry & Neurology Psychiatry
DX: F25.9 Schizoaffective disorder, unspecified (principal); E11.21 Type 2 diabetes mellitus with diabetic nephropathy; R45.851 Suicidal ideations; D69.6 Thrombocytopenia, unspecified; E11.65 Type 2 diabetes mellitus with hyperglycemia; E87.1 Hypo-osmolality and hyponatremia; E11.319 Type 2 diabetes mellitus with unspecified diabetic retinopathy without macular edema; I10 Essential (primary) hypertension; F41.9 Anxiety disorder, unspecified; E03.9 Hypothyroidism, unspecified; E78.00 Pure hypercholesterolemia, unspecified; E78.5 Hyperlipidemia, unspecified; F32.9 Major depressive disorder, single episode, unspecified; F99 Mental disorder, not otherwise specified; Z79.82 Long term (current) use of aspirin; Z79.899 Other long term (current) drug therapy; Z79.4 Long term (current) use of insulin; Z90.49 Acquired absence of other specified parts of digestive tract; Z28.21 Immunization not carried out because of patient refusal; Z83.3 Family history of diabetes mellitus; Z82.49 Family history of ischemic heart disease and other diseases of the circulatory system
CPT/HCPCS: 83036; 84443; 96372; 99285; G0480; J1815; Q0162

== ENCOUNTER 2017-12-09 19:33 | Inpatient (IN) | payer MEDICAID ==
[~2017-12-09] VITALS: Ht 167.6 cm; Wt 98.9 kg
[~2017-12-09 19:33] MED LIST changes: +ATOR40TA28 PO; -FOLI1 PO; +GABA-529 PO; -INSLAN SQ; +INSU100I26 SQ; -LAMO25 PO; +LEVO25TA9 PO; -LEVO50TA11 PO; +LINA5TAB PO; -LISI-660 PO; +LISI-661 PO; -METF-444 PO; +METF500T6 PO; -NALT50TA PO; -NALT50TA6 PO; -QUET200T PO; -QUET200T29 PO; +RISP2 PO; +SERT100T12 PO; -SIMV-260 PO; +TRAZ-220 PO
[2017-12-09 20:16] VITALS: BP 141/78
[2017-12-09] MEDS ORDERED: HALOPERIDOL 5 MG TABLET PO PRN (20:30)
[2017-12-09 21:50] VITALS: BP 154/84
[2017-12-09 22:09] LABS: GLUCOMETER DEV NAME(LOC) BV2S 2; GLUCOSE,POINT OF CARE 454 MG/DL (70-110)
[2017-12-09] MEDS ORDERED: DEXTROSE 50%-WATER 25 GM/50 ML SYRINGE IVP PRN (22:15)
[2017-12-09] MEDS ORDERED: INSULIN LISPRO 100 UNITS/ML SQ PRN (22:15)
[2017-12-09] MEDS ORDERED: GLUCAGON,HUMAN RECOMBINANT 1 MG VIAL IM PRN (22:15)
[2017-12-09] MEDS ORDERED: INSULIN LISPRO 100 UNITS/ML SQ ONE (23:05)
[2017-12-09] MEDS ORDERED: PNEUMOCOCCAL VACCINE POLYVALENT 0.5 ML VIAL [PPSV23] IM ONE (23:45)
[2017-12-09 23:58] LABS: GLUCOMETER DEV NAME(LOC) BV2S 2; GLUCOSE,POINT OF CARE 363 MG/DL (70-110)
[2017-12-10 00:44] VITALS: BP 120/81
[2017-12-10 02:39] LABS: GLUCOMETER DEV NAME(LOC) BV2S 2; GLUCOSE,POINT OF CARE 205 MG/DL (70-110)
[2017-12-10] MEDS: LEVOTHYROXINE SODIUM 25 MCG TABLET PO SCH (07:14)
[2017-12-10] MEDS: MetFORMIN HCL 500 MG TABLET PO SCH ×2 (07:14→16:31)
[2017-12-10] MEDS ORDERED: MAGNESIUM HYDROXIDE SUSPENSION 30 ML UDCUP PO PRN (07:45)
[2017-12-10] MEDS ORDERED: ONDANSETRON HCL 4 MG TABLET PO PRN (07:45)
[2017-12-10] MEDS ORDERED: DOCUSATE SODIUM 100 MG CAPSULE PO PRN (07:45)
[2017-12-10] MEDS ORDERED: ACETAMINOPHEN 325 MG TABLET PO PRN (07:45)
[2017-12-10] MEDS ORDERED: ALBUTEROL SULFATE HFA 90 MCG/PUFF 8 GM INHALER IH PRN (07:45)
[2017-12-10] MEDS ORDERED: PETROLATUM,WHITE 71 GM JELLY TP PRN (07:45)
[2017-12-10 08:14] LABS: BASOPHILS % (AUTO) 0.7 % (0.0-2.0); EOSINOPHILS % (AUTO) 1.8 % (1.0-6.0); HEMATOCRIT 39.6 % (36-46); HEMOGLOBIN 13.5 g/dL (12.0-16.0); LYMPHOCYTES # (AUTO) 2.2 K/uL (1.0-4.8); LYMPHOCYTES % (AUTO) 26.3 % (22.0-44.0); MEAN CORPUSCULAR VOLUME 82 fL (80-100); MONOCYTES # (AUTO) 0.6 K/uL (0.1-1.0); MONOCYTES % (AUTO) 7.9 % (2.0-9.0); NEUTROPHILS # (AUTO) 5.2 K/uL (1.8-7.7); NEUTROPHILS % (AUTO) 63.3 % (40.0-70.0); PLATELET COUNT (AUTO) 186 K/uL (150-450); RED BLOOD CELL COUNT(AUTO) 4.82 MIL/uL (4.00-5.20); RED CELL DISTRIBUTION WIDTH 14.5 % (11.5-14.5)
[2017-12-10 08:15] VITALS: BP 127/62
[2017-12-10 08:26] LABS: HEMOGLOBIN A1C 9.6 % (4.5-6.2)
[2017-12-10 08:41] LABS: ALANINE AMINOTRANSFERASE 25 U/L (12-78); ALBUMIN 3.5 g/dL (3.4-5.0); ALKALINE PHOSPHATASE 116 U/L (46-116); ANION GAP 10 mmol/L (8-16); ASPARTATE AMINOTRANSFERASE 22 U/L (15-37); BILIRUBIN,TOTAL 0.5 mg/dL (0.1-1.0); CALCIUM, TOTAL 8.6 mg/dL (8.8-10.5); CARBON DIOXIDE 24 mmol/L (22-29); CHLORIDE 99 mmol/L (98-107); CHOL/HDL RATIO 4.4 (3.9-5.7); CHOLESTEROL 168 mg/dL (131-200); CREATININE 0.84 mg/dL (0.60-1.30); FREE T4 (FREE THYROXINE) 0.67 ng/dL (0.76-1.46); GLOMERULAR FILTR. RATE CALC > 60 mL/min (>60); GLUCOSE,RANDOM 288 mg/dL (70-110); HCG,QUANTITATIVE < 1 mIU/mL (0-6); HDL CHOLESTEROL 38 mg/dL (40-60); LDL CHOL (CALC.) 98 mg/dL (0-130); SODIUM SERUM 133 mmol/L (136-145); TOTAL PROTEIN, SERUM 7.5 g/dL (6.4-8.2); TRIGLYCERIDES 158 mg/dL (15-150); UREA NITROGEN, BLOOD 14 mg/dL (7-18)
[2017-12-10] MEDS: LinaGLIPtin 5 MG TABLET PO SCH (09:00)
[2017-12-10] MEDS: NICOTINE 14 MG/24 HOUR PATCH TD SCH (09:00)
[2017-12-10] MEDS: LISINOPRIL 10 MG TABLET PO SCH (09:00)
[2017-12-10] MEDS: INSULIN GLARGINE,HUM.REC.ANLOG 100 UNITS/ML SQ SCH ×2 (09:00→16:32)
[2017-12-10] MEDS: INSULIN LISPRO 100 UNITS/ML SQ PRN ×3 (11:41→20:50)
[2017-12-10 11:55] LABS: GLUCOMETER DEV NAME(LOC) BV2S 2; GLUCOSE,POINT OF CARE 311 MG/DL (70-110)
[2017-12-10 14:18] VITALS: BP 124/85
[2017-12-10] MEDS: IBUPROFEN 400 MG TABLET PO PRN (14:20)
[2017-12-10 16:00] VITALS: BP 124/78
[2017-12-10] MEDS: LORazepam 2 MG TABLET PO PRN (16:31)
[2017-12-10] MEDS: LOPERAMIDE HCL 2 MG CAPSULE PO PRN (16:34)
[2017-12-10 17:09] LABS: GLUCOMETER DEV NAME(LOC) BV2S 2; GLUCOSE,POINT OF CARE 281 MG/DL (70-110)
[2017-12-10] MEDS ORDERED: GABA-533 PO (18:57)
[2017-12-10] MEDS: TraZODone HCL 100 MG TABLET PO SCH (20:31)
[2017-12-10] MEDS: ATORVASTATIN CALCIUM 40 MG TABLET PO SCH (20:31)
[2017-12-10] MEDS: RisperiDONE 2 MG TABLET PO SCH (20:31)
[2017-12-10 20:59] LABS: GLUCOMETER DEV NAME(LOC) BV2S 2; GLUCOSE,POINT OF CARE 284 MG/DL (70-110)
[2017-12-11 06:18] VITALS: BP 118/62
[2017-12-11 06:19] LABS: GLUCOMETER DEV NAME(LOC) BV2S 2; GLUCOSE,POINT OF CARE 304 MG/DL (70-110)
[2017-12-11] MEDS: LEVOTHYROXINE SODIUM 25 MCG TABLET PO SCH (06:36)
[2017-12-11] MEDS: MetFORMIN HCL 500 MG TABLET PO SCH ×2 (06:37→16:43)
[2017-12-11] MEDS: INSULIN LISPRO 100 UNITS/ML SQ PRN ×4 (06:57→20:52)
[2017-12-11 08:31] VITALS: BP 115/68
[2017-12-11] MEDS: INSULIN GLARGINE,HUM.REC.ANLOG 100 UNITS/ML SQ SCH ×2 (09:00→16:55)
[2017-12-11] MEDS: LISINOPRIL 10 MG TABLET PO SCH (09:40)
[2017-12-11] MEDS: SERTRALINE HCL 100 MG TABLET PO SCH (09:40)
[2017-12-11] MEDS: GABAPENTIN 400 MG CAPSULE PO SCH ×3 (09:41→16:43)
[2017-12-11] MEDS: LinaGLIPtin 5 MG TABLET PO SCH (09:41)
[2017-12-11] MEDS: NICOTINE 14 MG/24 HOUR PATCH TD SCH (09:42)
[2017-12-11 12:59] LABS: GLUCOMETER DEV NAME(LOC) BV2S 2; GLUCOSE,POINT OF CARE 319 MG/DL (70-110)
[2017-12-11 16:31] VITALS: BP 106/62
[2017-12-11 17:39] LABS: GLUCOMETER DEV NAME(LOC) BV2S 2; GLUCOSE,POINT OF CARE 332 MG/DL (70-110)
[2017-12-11] MEDS: TraZODone HCL 100 MG TABLET PO SCH (20:35)
[2017-12-11] MEDS: ATORVASTATIN CALCIUM 40 MG TABLET PO SCH (20:35)
[2017-12-11] MEDS: RisperiDONE 2 MG TABLET PO SCH (20:35)
[2017-12-11] MEDS: ZOLPIDEM TARTRATE 10 MG TABLET PO PRN (20:42)
[2017-12-11 21:04] LABS: GLUCOMETER DEV NAME(LOC) BV2S 2; GLUCOSE,POINT OF CARE 260 MG/DL (70-110)
[2017-12-12 00:19] VITALS: BP 110/61
[2017-12-12] MEDS: MetFORMIN HCL 500 MG TABLET PO SCH ×2 (06:46→16:35)
[2017-12-12] MEDS: LEVOTHYROXINE SODIUM 25 MCG TABLET PO SCH (06:46)
[2017-12-12] MEDS: INSULIN LISPRO 100 UNITS/ML SQ PRN ×4 (06:47→20:50)
[2017-12-12 07:28] LABS: GLUCOMETER DEV NAME(LOC) BV2S 2; GLUCOSE,POINT OF CARE 352 MG/DL (70-110)
[2017-12-12 08:37] VITALS: BP 107/64
[2017-12-12] MEDS: NICOTINE 14 MG/24 HOUR PATCH TD SCH (09:00)
[2017-12-12] MEDS: INSULIN GLARGINE,HUM.REC.ANLOG 100 UNITS/ML SQ SCH ×2 (09:41→17:13)
[2017-12-12] MEDS: GABAPENTIN 400 MG CAPSULE PO SCH ×3 (09:43→16:35)
[2017-12-12] MEDS: LISINOPRIL 10 MG TABLET PO SCH (09:43)
[2017-12-12] MEDS: LinaGLIPtin 5 MG TABLET PO SCH (09:44)
[2017-12-12] MEDS: SERTRALINE HCL 100 MG TABLET PO SCH (09:44)
[2017-12-12 11:49] LABS: GLUCOMETER DEV NAME(LOC) BV2S 2; GLUCOSE,POINT OF CARE 281 MG/DL (70-110)
[2017-12-12 17:04] LABS: GLUCOMETER DEV NAME(LOC) BV2S 2; GLUCOSE,POINT OF CARE 247 MG/DL (70-110)
[2017-12-12 17:46] VITALS: BP 129/65
[2017-12-12] MEDS: RisperiDONE 2 MG TABLET PO SCH (20:42)
[2017-12-12] MEDS: ATORVASTATIN CALCIUM 40 MG TABLET PO SCH (20:42)
[2017-12-12] MEDS: TraZODone HCL 100 MG TABLET PO SCH (20:42)
[2017-12-12 21:04] LABS: GLUCOMETER DEV NAME(LOC) BV2S 2; GLUCOSE,POINT OF CARE 218 MG/DL (70-110)
[2017-12-12] MEDS: ZOLPIDEM TARTRATE 10 MG TABLET PO PRN (22:11)
[2017-12-13 05:55] VITALS: BP 110/64
[2017-12-13] MEDS: MetFORMIN HCL 500 MG TABLET PO SCH ×2 (06:50→16:28)
[2017-12-13] MEDS: LEVOTHYROXINE SODIUM 25 MCG TABLET PO SCH (06:50)
[2017-12-13] MEDS: INSULIN LISPRO 100 UNITS/ML SQ PRN ×4 (06:52→20:21)
[2017-12-13 07:20] LABS: GLUCOMETER DEV NAME(LOC) BV2S 2; GLUCOSE,POINT OF CARE 269 MG/DL (70-110)
[2017-12-13 08:40] VITALS: BP 113/67
[2017-12-13] MEDS: GABAPENTIN 400 MG CAPSULE PO SCH ×3 (09:04→16:28)
[2017-12-13] MEDS: LinaGLIPtin 5 MG TABLET PO SCH (09:04)
[2017-12-13] MEDS: LISINOPRIL 10 MG TABLET PO SCH (09:04)
[2017-12-13] MEDS: NICOTINE 14 MG/24 HOUR PATCH TD SCH (09:04)
[2017-12-13] MEDS: SERTRALINE HCL 100 MG TABLET PO SCH (09:04)
[2017-12-13] MEDS: INSULIN GLARGINE,HUM.REC.ANLOG 100 UNITS/ML SQ SCH ×2 (09:07→16:34)
[2017-12-13 11:54] LABS: GLUCOMETER DEV NAME(LOC) BV2S 2; GLUCOSE,POINT OF CARE 253 MG/DL (70-110)
[2017-12-13 16:15] VITALS: BP 105/60
[2017-12-13 17:19] LABS: GLUCOMETER DEV NAME(LOC) BV2S 2; GLUCOSE,POINT OF CARE 226 MG/DL (70-110)
[2017-12-13] MEDS: TraZODone HCL 100 MG TABLET PO SCH (20:12)
[2017-12-13] MEDS: ATORVASTATIN CALCIUM 40 MG TABLET PO SCH (20:14)
[2017-12-13] MEDS: RisperiDONE 2 MG TABLET PO SCH (20:15)
[2017-12-13] MEDS: ZOLPIDEM TARTRATE 10 MG TABLET PO PRN (20:26)
[2017-12-13 21:39] LABS: GLUCOMETER DEV NAME(LOC) BV2S 2; GLUCOSE,POINT OF CARE 302 MG/DL (70-110)
[2017-12-14 06:16] VITALS: BP 110/68
[2017-12-14 06:29] LABS: GLUCOMETER DEV NAME(LOC) BV2S 2; GLUCOSE,POINT OF CARE 198 MG/DL (70-110)
[2017-12-14] MEDS: LEVOTHYROXINE SODIUM 50 MCG TABLET PO SCH (07:11)
[2017-12-14] MEDS: MetFORMIN HCL 500 MG TABLET PO SCH ×2 (07:11→16:42)
[2017-12-14] MEDS: INSULIN LISPRO 100 UNITS/ML SQ PRN ×4 (07:13→21:04)
[2017-12-14 08:50] VITALS: BP 101/70
[2017-12-14] MEDS: SERTRALINE HCL 100 MG TABLET PO SCH (08:55)
[2017-12-14] MEDS: GABAPENTIN 400 MG CAPSULE PO SCH ×3 (08:55→16:42)
[2017-12-14] MEDS: NICOTINE 14 MG/24 HOUR PATCH TD SCH ×2 (08:56→09:00)
[2017-12-14] MEDS: LinaGLIPtin 5 MG TABLET PO SCH (08:56)
[2017-12-14] MEDS: LISINOPRIL 10 MG TABLET PO SCH (08:56)
[2017-12-14 10:49] LABS: GLUCOMETER DEV NAME(LOC) BV2S 2; GLUCOSE,POINT OF CARE 316 MG/DL (70-110)
[2017-12-14] MEDS: INSULIN GLARGINE,HUM.REC.ANLOG 100 UNITS/ML SQ SCH ×2 (10:59→16:56)
[2017-12-14 16:08] VITALS: BP 108/62
[2017-12-14 17:04] LABS: GLUCOMETER DEV NAME(LOC) BV2S 2; GLUCOSE,POINT OF CARE 228 MG/DL (70-110)
[2017-12-14] MEDS: ZOLPIDEM TARTRATE 10 MG TABLET PO PRN (20:56)
[2017-12-14] MEDS: TraZODone HCL 100 MG TABLET PO SCH (20:56)
[2017-12-14] MEDS: ATORVASTATIN CALCIUM 40 MG TABLET PO SCH (20:56)
[2017-12-14] MEDS: RisperiDONE 2 MG TABLET PO SCH (20:56)
[2017-12-14 21:29] LABS: GLUCOMETER DEV NAME(LOC) BV2S 2; GLUCOSE,POINT OF CARE 252 MG/DL (70-110)
[2017-12-15 00:57] VITALS: BP 109/61
[2017-12-15 06:29] LABS: GLUCOMETER DEV NAME(LOC) BV2S 2; GLUCOSE,POINT OF CARE 199 MG/DL (70-110)
[2017-12-15] MEDS: MetFORMIN HCL 500 MG TABLET PO SCH ×2 (06:54→16:38)
[2017-12-15] MEDS: LEVOTHYROXINE SODIUM 50 MCG TABLET PO SCH (06:54)
[2017-12-15] MEDS: INSULIN LISPRO 100 UNITS/ML SQ PRN ×4 (07:03→20:48)
[2017-12-15 08:28] VITALS: BP 107/60
[2017-12-15] MEDS: NICOTINE 14 MG/24 HOUR PATCH TD SCH (09:00)
[2017-12-15] MEDS: GABAPENTIN 400 MG CAPSULE PO SCH ×3 (09:08→16:38)
[2017-12-15] MEDS: LinaGLIPtin 5 MG TABLET PO SCH (09:08)
[2017-12-15] MEDS: LISINOPRIL 10 MG TABLET PO SCH (09:08)
[2017-12-15] MEDS: SERTRALINE HCL 100 MG TABLET PO SCH (09:08)
[2017-12-15] MEDS: INSULIN GLARGINE,HUM.REC.ANLOG 100 UNITS/ML SQ SCH ×2 (09:13→16:52)
[2017-12-15 12:24] LABS: GLUCOMETER DEV NAME(LOC) BV2S 2; GLUCOSE,POINT OF CARE 264 MG/DL (70-110)
[2017-12-15 16:10] VITALS: BP 113/68
[2017-12-15 18:24] LABS: GLUCOMETER DEV NAME(LOC) BV2S 2; GLUCOSE,POINT OF CARE 286 MG/DL (70-110)
[2017-12-15] MEDS: TraZODone HCL 100 MG TABLET PO SCH (20:31)
[2017-12-15] MEDS: ATORVASTATIN CALCIUM 40 MG TABLET PO SCH (20:32)
[2017-12-15] MEDS: RisperiDONE 2 MG TABLET PO SCH (20:32)
[2017-12-15] MEDS: ZOLPIDEM TARTRATE 10 MG TABLET PO PRN (20:35)
[2017-12-15 21:09] LABS: GLUCOMETER DEV NAME(LOC) BV2S 2; GLUCOSE,POINT OF CARE 239 MG/DL (70-110)
[2017-12-16 06:03] VITALS: BP 120/81
[2017-12-16] MEDS: LEVOTHYROXINE SODIUM 50 MCG TABLET PO SCH (06:23)
[2017-12-16 06:39] LABS: GLUCOMETER DEV NAME(LOC) BV2S 2; GLUCOSE,POINT OF CARE 211 MG/DL (70-110)
[2017-12-16] MEDS: INSULIN LISPRO 100 UNITS/ML SQ PRN ×4 (07:03→20:52)
[2017-12-16] MEDS: MetFORMIN HCL 500 MG TABLET PO SCH ×2 (07:14→16:44)
[2017-12-16 08:11] VITALS: BP 104/57
[2017-12-16] MEDS: LISINOPRIL 10 MG TABLET PO SCH (08:34)
[2017-12-16] MEDS: NICOTINE 14 MG/24 HOUR PATCH TD SCH ×2 (08:34→14:01)
[2017-12-16] MEDS: LinaGLIPtin 5 MG TABLET PO SCH (08:34)
[2017-12-16] MEDS: GABAPENTIN 400 MG CAPSULE PO SCH ×3 (08:35→16:44)
[2017-12-16] MEDS: SERTRALINE HCL 100 MG TABLET PO SCH (08:35)
[2017-12-16] MEDS: INSULIN GLARGINE,HUM.REC.ANLOG 100 UNITS/ML SQ SCH ×2 (08:50→17:02)
[2017-12-16 09:12] LABS: ANION GAP 9 mmol/L (8-16); CALCIUM, TOTAL 8.7 mg/dL (8.8-10.5); CARBON DIOXIDE 25 mmol/L (22-29); CHLORIDE 100 mmol/L (98-107); CREATININE 0.95 mg/dL (0.60-1.30); GLOMERULAR FILTR. RATE CALC > 60 mL/min (>60); GLUCOSE,RANDOM 283 mg/dL (70-110); POTASSIUM 4.2 mmol/L (3.5-5.1); SODIUM SERUM 134 mmol/L (136-145); UREA NITROGEN, BLOOD 20 mg/dL (7-18)
[2017-12-16 11:04] LABS: GLUCOMETER DEV NAME(LOC) BV2S 2; GLUCOSE,POINT OF CARE 251 MG/DL (70-110)
[2017-12-16] MEDS: LOPERAMIDE HCL 2 MG CAPSULE PO PRN (14:14)
[2017-12-16 16:03] VITALS: BP 110/65
[2017-12-16 16:33] LABS: GLUCOMETER DEV NAME(LOC) BV2S 2; GLUCOSE,POINT OF CARE 157 MG/DL (70-110)
[2017-12-16] MEDS: ATORVASTATIN CALCIUM 40 MG TABLET PO SCH (20:39)
[2017-12-16] MEDS: RisperiDONE 2 MG TABLET PO SCH (20:39)
[2017-12-16] MEDS: TraZODone HCL 100 MG TABLET PO SCH (20:39)
[2017-12-16] MEDS: ZOLPIDEM TARTRATE 10 MG TABLET PO PRN (20:45)
[2017-12-16 20:49] LABS: GLUCOMETER DEV NAME(LOC) BV2S 2; GLUCOSE,POINT OF CARE 208 MG/DL (70-110)
[2017-12-17 04:15] VITALS: BP 101/60
[2017-12-17] MEDS: LEVOTHYROXINE SODIUM 50 MCG TABLET PO SCH (06:21)
[2017-12-17 06:24] LABS: GLUCOMETER DEV NAME(LOC) BV2S 2; GLUCOSE,POINT OF CARE 282 MG/DL (70-110)
[2017-12-17] MEDS: INSULIN LISPRO 100 UNITS/ML SQ PRN ×4 (06:49→20:48)
[2017-12-17] MEDS: MetFORMIN HCL 500 MG TABLET PO SCH ×2 (06:55→17:07)
[2017-12-17 08:52] VITALS: BP 117/67
[2017-12-17] MEDS: NICOTINE 14 MG/24 HOUR PATCH TD SCH (09:00)
[2017-12-17] MEDS: INSULIN GLARGINE,HUM.REC.ANLOG 100 UNITS/ML SQ SCH ×2 (09:35→16:41)
[2017-12-17] MEDS: GABAPENTIN 400 MG CAPSULE PO SCH ×3 (09:36→17:07)
[2017-12-17] MEDS: SERTRALINE HCL 100 MG TABLET PO SCH (09:36)
[2017-12-17] MEDS: LISINOPRIL 10 MG TABLET PO SCH (09:36)
[2017-12-17] MEDS: LinaGLIPtin 5 MG TABLET PO SCH (09:37)
[2017-12-17 12:59] LABS: GLUCOMETER DEV NAME(LOC) BV2S 2; GLUCOSE,POINT OF CARE 204 MG/DL (70-110)
[2017-12-17 16:49] LABS: GLUCOMETER DEV NAME(LOC) BV2S 2; GLUCOSE,POINT OF CARE 216 MG/DL (70-110)
[2017-12-17] MEDS: LOPERAMIDE HCL 2 MG CAPSULE PO PRN (17:07)
[2017-12-17] MEDS: TraZODone HCL 100 MG TABLET PO SCH (20:32)
[2017-12-17] MEDS: RisperiDONE 2 MG TABLET PO SCH (20:32)
[2017-12-17] MEDS: ATORVASTATIN CALCIUM 40 MG TABLET PO SCH (20:32)
[2017-12-17 20:58] LABS: GLUCOMETER DEV NAME(LOC) BV2S 2; GLUCOSE,POINT OF CARE 190 MG/DL (70-110)
[2017-12-17] MEDS: ZOLPIDEM TARTRATE 10 MG TABLET PO PRN (21:36)
[2017-12-18 05:40] VITALS: BP 120/81
[2017-12-18 06:39] LABS: GLUCOMETER DEV NAME(LOC) BV2S 2; GLUCOSE,POINT OF CARE 297 MG/DL (70-110)
[2017-12-18] MEDS: LEVOTHYROXINE SODIUM 50 MCG TABLET PO SCH (06:43)
[2017-12-18] MEDS: MetFORMIN HCL 500 MG TABLET PO SCH ×2 (07:09→16:20)
[2017-12-18] MEDS: INSULIN LISPRO 100 UNITS/ML SQ PRN ×4 (07:22→21:00)
[2017-12-18 08:53] VITALS: BP 110/67
[2017-12-18] MEDS: NICOTINE 14 MG/24 HOUR PATCH TD SCH (08:54)
[2017-12-18] MEDS: GABAPENTIN 400 MG CAPSULE PO SCH ×3 (08:54→16:20)
[2017-12-18] MEDS: LinaGLIPtin 5 MG TABLET PO SCH (08:54)
[2017-12-18] MEDS: LISINOPRIL 10 MG TABLET PO SCH (08:54)
[2017-12-18] MEDS: SERTRALINE HCL 100 MG TABLET PO SCH (08:54)
[2017-12-18 10:53] LABS: GLUCOMETER DEV NAME(LOC) BV2S 2; GLUCOSE,POINT OF CARE 251 MG/DL (70-110)
[2017-12-18] MEDS: INSULIN GLARGINE,HUM.REC.ANLOG 100 UNITS/ML SQ SCH ×2 (11:08→16:53)
[2017-12-18] MEDS: LOPERAMIDE HCL 2 MG CAPSULE PO PRN (15:51)
[2017-12-18 16:26] VITALS: BP 122/69
[2017-12-18 16:49] LABS: GLUCOMETER DEV NAME(LOC) BV2S 2; GLUCOSE,POINT OF CARE 158 MG/DL (70-110)
[2017-12-18] MEDS: ATORVASTATIN CALCIUM 40 MG TABLET PO SCH (20:26)
[2017-12-18] MEDS: RisperiDONE 2 MG TABLET PO SCH (20:26)
[2017-12-18] MEDS: TraZODone HCL 100 MG TABLET PO SCH (20:26)
[2017-12-18 21:14] LABS: GLUCOMETER DEV NAME(LOC) BV2S 2; GLUCOSE,POINT OF CARE 184 MG/DL (70-110)
[2017-12-19 01:16] VITALS: BP 124/74
[2017-12-19] MEDS: LOPERAMIDE HCL 2 MG CAPSULE PO PRN ×2 (03:12→16:39)
[2017-12-19] MEDS: INSULIN LISPRO 100 UNITS/ML SQ PRN ×4 (06:17→21:05)
[2017-12-19 06:18] LABS: GLUCOMETER DEV NAME(LOC) BV2S 2; GLUCOSE,POINT OF CARE 268 MG/DL (70-110)
[2017-12-19] MEDS: LEVOTHYROXINE SODIUM 50 MCG TABLET PO SCH (06:32)
[2017-12-19] MEDS: MetFORMIN HCL 500 MG TABLET PO SCH ×2 (06:32→16:30)
[2017-12-19 08:16] VITALS: BP 105/71
[2017-12-19] MEDS: NICOTINE 14 MG/24 HOUR PATCH TD SCH (09:00)
[2017-12-19] MEDS: GABAPENTIN 400 MG CAPSULE PO SCH ×3 (09:01→16:27)
[2017-12-19] MEDS: SERTRALINE HCL 100 MG TABLET PO SCH (09:01)
[2017-12-19] MEDS: LISINOPRIL 10 MG TABLET PO SCH (09:01)
[2017-12-19] MEDS: INSULIN GLARGINE,HUM.REC.ANLOG 100 UNITS/ML SQ SCH ×2 (09:05→16:55)
[2017-12-19] MEDS: LinaGLIPtin 5 MG TABLET PO SCH (09:18)
[2017-12-19 09:23] LABS: ANION GAP 6 mmol/L (8-16); CARBON DIOXIDE 29 mmol/L (22-29); CHLORIDE 101 mmol/L (98-107); CREATININE 0.91 mg/dL (0.60-1.30); GLOMERULAR FILTR. RATE CALC > 60 mL/min (>60); GLUCOSE,RANDOM 274 mg/dL (70-110); POTASSIUM 4.2 mmol/L (3.5-5.1); SODIUM SERUM 136 mmol/L (136-145); UREA NITROGEN, BLOOD 17 mg/dL (7-18)
[2017-12-19] MEDS: MAG HYDROX/AL HYDROX/SIMETH ES 30 ML SUSPENSION UDCUP PO PRN ×2 (10:14→18:19)
[2017-12-19 12:23] LABS: GLUCOMETER DEV NAME(LOC) BV2S 2; GLUCOSE,POINT OF CARE 199 MG/DL (70-110)
[2017-12-19 16:00] VITALS: BP 120/67
[2017-12-19 17:13] LABS: GLUCOMETER DEV NAME(LOC) BV2S 2; GLUCOSE,POINT OF CARE 271 MG/DL (70-110)
[2017-12-19] MEDS: ATORVASTATIN CALCIUM 40 MG TABLET PO SCH (20:52)
[2017-12-19] MEDS: RisperiDONE 2 MG TABLET PO SCH (20:52)
[2017-12-19] MEDS: TraZODone HCL 100 MG TABLET PO SCH (20:52)
[2017-12-19 21:28] LABS: GLUCOMETER DEV NAME(LOC) BV2S 2; GLUCOSE,POINT OF CARE 189 MG/DL (70-110)
[2017-12-20 00:59] VITALS: BP 131/68
[2017-12-20] MEDS: LEVOTHYROXINE SODIUM 50 MCG TABLET PO SCH (06:39)
[2017-12-20] MEDS: MetFORMIN HCL 500 MG TABLET PO SCH ×2 (06:39→16:24)
[2017-12-20] MEDS: INSULIN LISPRO 100 UNITS/ML SQ PRN ×4 (06:40→21:17)
[2017-12-20 07:13] LABS: GLUCOMETER DEV NAME(LOC) BV2S 2; GLUCOSE,POINT OF CARE 247 MG/DL (70-110)
[2017-12-20 08:56] VITALS: BP 113/62
[2017-12-20] MEDS: NICOTINE 14 MG/24 HOUR PATCH TD SCH (09:00)
[2017-12-20] MEDS: DIVALPROEX SODIUM 500 MG DR TABLET PO SCH ×2 (09:02→16:23)
[2017-12-20] MEDS: GABAPENTIN 400 MG CAPSULE PO SCH ×3 (09:02→16:24)
[2017-12-20] MEDS: DULoxetine HCL 60 MG CAPSULE PO SCH (09:02)
[2017-12-20] MEDS: SERTRALINE HCL 100 MG TABLET PO SCH (09:02)
[2017-12-20] MEDS: LISINOPRIL 10 MG TABLET PO SCH (09:02)
[2017-12-20] MEDS: LinaGLIPtin 5 MG TABLET PO SCH (09:02)
[2017-12-20] MEDS: INSULIN GLARGINE,HUM.REC.ANLOG 100 UNITS/ML SQ SCH ×2 (09:14→16:37)
[2017-12-20 11:18] LABS: GLUCOMETER DEV NAME(LOC) BV2S 2; GLUCOSE,POINT OF CARE 298 MG/DL (70-110)
[2017-12-20 11:18] LABS: GLUCOMETER DEV NAME(LOC) BV2S 2; GLUCOSE,POINT OF CARE 262 MG/DL (70-110)
[2017-12-20 16:13] VITALS: BP 128/65
[2017-12-20 16:38] LABS: GLUCOMETER DEV NAME(LOC) BV2S 2; GLUCOSE,POINT OF CARE 251 MG/DL (70-110)
[2017-12-20] MEDS: TraZODone HCL 100 MG TABLET PO SCH (20:48)
[2017-12-20] MEDS: ATORVASTATIN CALCIUM 40 MG TABLET PO SCH (20:48)
[2017-12-20] MEDS: RisperiDONE 2 MG TABLET PO SCH (20:48)
[2017-12-20] MEDS: ZOLPIDEM TARTRATE 10 MG TABLET PO PRN (20:56)
[2017-12-20 21:29] LABS: GLUCOMETER DEV NAME(LOC) BV2S 2; GLUCOSE,POINT OF CARE 338 MG/DL (70-110)
[2017-12-21 00:58] VITALS: BP 127/80
[2017-12-21] MEDS: LEVOTHYROXINE SODIUM 50 MCG TABLET PO SCH (06:54)
[2017-12-21] MEDS: MetFORMIN HCL 500 MG TABLET PO SCH ×2 (06:54→16:46)
[2017-12-21] MEDS: INSULIN LISPRO 100 UNITS/ML SQ PRN ×3 (06:56→20:26)
[2017-12-21 07:23] LABS: GLUCOMETER DEV NAME(LOC) BV2S 2; GLUCOSE,POINT OF CARE 190 MG/DL (70-110)
[2017-12-21 08:39] VITALS: BP 125/67
[2017-12-21] MEDS: NICOTINE 14 MG/24 HOUR PATCH TD SCH (09:00)
[2017-12-21] MEDS: SERTRALINE HCL 100 MG TABLET PO SCH (10:10)
[2017-12-21] MEDS: GABAPENTIN 400 MG CAPSULE PO SCH ×3 (10:10→16:16)
[2017-12-21] MEDS: DULoxetine HCL 60 MG CAPSULE PO SCH (10:10)
[2017-12-21] MEDS: DIVALPROEX SODIUM 500 MG DR TABLET PO SCH ×2 (10:10→16:16)
[2017-12-21] MEDS: LISINOPRIL 10 MG TABLET PO SCH (10:10)
[2017-12-21] MEDS: INSULIN GLARGINE,HUM.REC.ANLOG 100 UNITS/ML SQ SCH ×2 (10:15→16:26)
[2017-12-21] MEDS: LinaGLIPtin 5 MG TABLET PO SCH (10:25)
[2017-12-21 16:13] VITALS: BP 116/64
[2017-12-21 16:33] LABS: GLUCOMETER DEV NAME(LOC) BV2S 2; GLUCOSE,POINT OF CARE 231 MG/DL (70-110)
[2017-12-21] MEDS: RisperiDONE 2 MG TABLET PO SCH (20:16)
[2017-12-21] MEDS: ATORVASTATIN CALCIUM 40 MG TABLET PO SCH (20:16)
[2017-12-21] MEDS: TraZODone HCL 100 MG TABLET PO SCH (20:16)
[2017-12-21 20:38] LABS: GLUCOMETER DEV NAME(LOC) BV2S 2; GLUCOSE,POINT OF CARE 237 MG/DL (70-110)
[2017-12-21] MEDS: ZOLPIDEM TARTRATE 10 MG TABLET PO PRN (21:07)
[2017-12-22 04:27] VITALS: BP 114/68
[2017-12-22] MEDS: MetFORMIN HCL 500 MG TABLET PO SCH ×2 (06:26→16:47)
[2017-12-22] MEDS: LEVOTHYROXINE SODIUM 50 MCG TABLET PO SCH (06:27)
[2017-12-22 06:35] LABS: GLUCOMETER DEV NAME(LOC) BV2S 2; GLUCOSE,POINT OF CARE 157 MG/DL (70-110)
[2017-12-22 08:27] VITALS: BP 116/64
[2017-12-22] MEDS: NICOTINE 14 MG/24 HOUR PATCH TD SCH (09:00)
[2017-12-22] MEDS: GABAPENTIN 400 MG CAPSULE PO SCH ×3 (09:36→16:03)
[2017-12-22] MEDS: SERTRALINE HCL 100 MG TABLET PO SCH (09:37)
[2017-12-22] MEDS: LISINOPRIL 10 MG TABLET PO SCH (09:38)
[2017-12-22] MEDS: DIVALPROEX SODIUM 500 MG DR TABLET PO SCH ×2 (09:38→16:03)
[2017-12-22] MEDS: LinaGLIPtin 5 MG TABLET PO SCH (09:38)
[2017-12-22] MEDS: DULoxetine HCL 60 MG CAPSULE PO SCH (09:38)
[2017-12-22] MEDS: INSULIN GLARGINE,HUM.REC.ANLOG 100 UNITS/ML SQ SCH ×2 (10:03→16:33)
[2017-12-22] MEDS: INSULIN LISPRO 100 UNITS/ML SQ PRN ×3 (12:13→20:07)
[2017-12-22 12:23] LABS: GLUCOMETER DEV NAME(LOC) BV2S 2; GLUCOSE,POINT OF CARE 235 MG/DL (70-110)
[2017-12-22 16:03] VITALS: BP 106/61
[2017-12-22 16:19] LABS: GLUCOMETER DEV NAME(LOC) BV2S 2; GLUCOSE,POINT OF CARE 260 MG/DL (70-110)
[2017-12-22] MEDS: TraZODone HCL 100 MG TABLET PO SCH (20:03)
[2017-12-22] MEDS: RisperiDONE 2 MG TABLET PO SCH (20:04)
[2017-12-22 20:12] LABS: GLUCOMETER DEV NAME(LOC) BV2S 2; GLUCOSE,POINT OF CARE 313 MG/DL (70-110)
[2017-12-22] MEDS: ATORVASTATIN CALCIUM 40 MG TABLET PO SCH (20:20)
[2017-12-22] MEDS: ZOLPIDEM TARTRATE 10 MG TABLET PO PRN (20:20)
[2017-12-22] MEDS: MAG HYDROX/AL HYDROX/SIMETH ES 30 ML SUSPENSION UDCUP PO PRN (22:23)
[2017-12-23] MEDS: MetFORMIN HCL 500 MG TABLET PO SCH ×2 (06:36→17:10)
[2017-12-23] MEDS: LEVOTHYROXINE SODIUM 50 MCG TABLET PO SCH (06:36)
[2017-12-23 06:38] LABS: GLUCOMETER DEV NAME(LOC) BV2S 2; GLUCOSE,POINT OF CARE 175 MG/DL (70-110)
[2017-12-23] MEDS: INSULIN LISPRO 100 UNITS/ML SQ PRN ×4 (06:47→20:27)
[2017-12-23 06:57] VITALS: BP 110/68
[2017-12-23 08:39] VITALS: BP 121/64
[2017-12-23] MEDS: NICOTINE 14 MG/24 HOUR PATCH TD SCH (09:00)
[2017-12-23] MEDS: GABAPENTIN 400 MG CAPSULE PO SCH ×3 (09:06→16:20)
[2017-12-23] MEDS: DIVALPROEX SODIUM 500 MG DR TABLET PO SCH ×2 (09:06→16:20)
[2017-12-23] MEDS: SERTRALINE HCL 100 MG TABLET PO SCH (09:07)
[2017-12-23] MEDS: LISINOPRIL 10 MG TABLET PO SCH (09:07)
[2017-12-23] MEDS: LinaGLIPtin 5 MG TABLET PO SCH (09:07)
[2017-12-23] MEDS: DULoxetine HCL 60 MG CAPSULE PO SCH (09:07)
[2017-12-23] MEDS: INSULIN GLARGINE,HUM.REC.ANLOG 100 UNITS/ML SQ SCH ×2 (09:13→16:21)
[2017-12-23 09:43] LABS: GLUCOMETER DEV NAME(LOC) BV2S 2; GLUCOSE,POINT OF CARE 272 MG/DL (70-110)
[2017-12-23 12:28] LABS: GLUCOMETER DEV NAME(LOC) BV2S 2; GLUCOSE,POINT OF CARE 251 MG/DL (70-110)
[2017-12-23 16:25] VITALS: BP 112/62
[2017-12-23 16:44] LABS: GLUCOMETER DEV NAME(LOC) BV2S 2; GLUCOSE,POINT OF CARE 179 MG/DL (70-110)
[2017-12-23] MEDS: LORazepam 2 MG TABLET PO PRN (16:52)
[2017-12-23] MEDS: ATORVASTATIN CALCIUM 40 MG TABLET PO SCH (20:19)
[2017-12-23] MEDS: TraZODone HCL 100 MG TABLET PO SCH (20:19)
[2017-12-23] MEDS: RisperiDONE 2 MG TABLET PO SCH (20:19)
[2017-12-23 20:34] LABS: GLUCOMETER DEV NAME(LOC) BV2S 2; GLUCOSE,POINT OF CARE 227 MG/DL (70-110)
[2017-12-23] MEDS: ZOLPIDEM TARTRATE 10 MG TABLET PO PRN (20:45)
[2017-12-24 06:10] VITALS: BP 138/80
[2017-12-24] MEDS: MetFORMIN HCL 500 MG TABLET PO SCH ×2 (07:10→16:21)
[2017-12-24] MEDS: LEVOTHYROXINE SODIUM 50 MCG TABLET PO SCH (07:10)
[2017-12-24] MEDS: INSULIN LISPRO 100 UNITS/ML SQ PRN ×4 (07:13→21:53)
[2017-12-24 07:49] LABS: GLUCOMETER DEV NAME(LOC) BV2S 2; GLUCOSE,POINT OF CARE 202 MG/DL (70-110)
[2017-12-24 08:00] VITALS: BP 114/64
[2017-12-24] MEDS: GABAPENTIN 400 MG CAPSULE PO SCH ×3 (09:55→16:22)
[2017-12-24] MEDS: DIVALPROEX SODIUM 500 MG DR TABLET PO SCH ×2 (09:55→16:21)
[2017-12-24] MEDS: LISINOPRIL 10 MG TABLET PO SCH (09:55)
[2017-12-24] MEDS: SERTRALINE HCL 100 MG TABLET PO SCH (09:55)
[2017-12-24] MEDS: NICOTINE 14 MG/24 HOUR PATCH TD SCH (09:55)
[2017-12-24] MEDS: LOPERAMIDE HCL 2 MG CAPSULE PO PRN (09:56)
[2017-12-24] MEDS: LinaGLIPtin 5 MG TABLET PO SCH (09:56)
[2017-12-24] MEDS: DULoxetine HCL 60 MG CAPSULE PO SCH (09:56)
[2017-12-24 11:03] LABS: GLUCOMETER DEV NAME(LOC) BV2S 2; GLUCOSE,POINT OF CARE 243 MG/DL (70-110)
[2017-12-24] MEDS: INSULIN GLARGINE,HUM.REC.ANLOG 100 UNITS/ML SQ SCH ×2 (11:18→16:32)
[2017-12-24] MEDS: LORazepam 2 MG TABLET PO PRN (13:24)
[2017-12-24 16:29] LABS: GLUCOMETER DEV NAME(LOC) BV2S 2; GLUCOSE,POINT OF CARE 201 MG/DL (70-110)
[2017-12-24 16:35] VITALS: BP 116/67
[2017-12-24] MEDS: TraZODone HCL 100 MG TABLET PO SCH (20:27)
[2017-12-24] MEDS: ATORVASTATIN CALCIUM 40 MG TABLET PO SCH (20:27)
[2017-12-24] MEDS: RisperiDONE 2 MG TABLET PO SCH (20:27)
[2017-12-24 20:39] LABS: GLUCOMETER DEV NAME(LOC) BV2S 2; GLUCOSE,POINT OF CARE 199 MG/DL (70-110)
[2017-12-24] MEDS: ZOLPIDEM TARTRATE 10 MG TABLET PO PRN (20:56)
[2017-12-25 06:20] LABS: GLUCOMETER DEV NAME(LOC) BV2S 2; GLUCOSE,POINT OF CARE 195 MG/DL (70-110)
[2017-12-25 06:59] VITALS: BP 103/64
[2017-12-25] MEDS: LEVOTHYROXINE SODIUM 50 MCG TABLET PO SCH (07:15)
[2017-12-25] MEDS: MetFORMIN HCL 500 MG TABLET PO SCH ×2 (07:15→17:16)
[2017-12-25] MEDS: INSULIN LISPRO 100 UNITS/ML SQ PRN ×4 (07:17→20:52)
[2017-12-25] MEDS: NICOTINE 14 MG/24 HOUR PATCH TD SCH (08:31)
[2017-12-25] MEDS: DIVALPROEX SODIUM 500 MG DR TABLET PO SCH ×2 (08:31→17:16)
[2017-12-25] MEDS: DULoxetine HCL 60 MG CAPSULE PO SCH (08:31)
[2017-12-25] MEDS: SERTRALINE HCL 100 MG TABLET PO SCH (08:31)
[2017-12-25] MEDS: GABAPENTIN 400 MG CAPSULE PO SCH ×3 (08:31→17:16)
[2017-12-25] MEDS: LISINOPRIL 10 MG TABLET PO SCH (08:31)
[2017-12-25] MEDS: LinaGLIPtin 5 MG TABLET PO SCH (08:32)
[2017-12-25] MEDS: INSULIN GLARGINE,HUM.REC.ANLOG 100 UNITS/ML SQ SCH ×2 (08:36→16:32)
[2017-12-25 08:44] VITALS: BP 118/69
[2017-12-25 13:04] LABS: GLUCOMETER DEV NAME(LOC) BV2S 2; GLUCOSE,POINT OF CARE 189 MG/DL (70-110)
[2017-12-25 16:11] VITALS: BP 111/63
[2017-12-25 16:44] LABS: GLUCOMETER DEV NAME(LOC) BV2S 2; GLUCOSE,POINT OF CARE 286 MG/DL (70-110)
[2017-12-25] MEDS: RisperiDONE 2 MG TABLET PO SCH (20:42)
[2017-12-25] MEDS: TraZODone HCL 100 MG TABLET PO SCH (20:42)
[2017-12-25] MEDS: ATORVASTATIN CALCIUM 40 MG TABLET PO SCH (20:42)
[2017-12-25 21:12] LABS: GLUCOMETER DEV NAME(LOC) BV2S 2; GLUCOSE,POINT OF CARE 219 MG/DL (70-110)
[2017-12-25] MEDS: ZOLPIDEM TARTRATE 10 MG TABLET PO PRN (22:59)
[2017-12-26 00:56] VITALS: BP 108/62
[2017-12-26] MEDS: INSULIN LISPRO 100 UNITS/ML SQ PRN ×3 (06:47→17:05)
[2017-12-26] MEDS: MetFORMIN HCL 500 MG TABLET PO SCH ×2 (07:01→16:35)
[2017-12-26] MEDS: LEVOTHYROXINE SODIUM 50 MCG TABLET PO SCH (07:02)
[2017-12-26 07:28] LABS: GLUCOMETER DEV NAME(LOC) BV2S 2; GLUCOSE,POINT OF CARE 186 MG/DL (70-110)
[2017-12-26] MEDS: INSULIN GLARGINE,HUM.REC.ANLOG 100 UNITS/ML SQ SCH ×2 (08:17→17:04)
[2017-12-26] MEDS: LISINOPRIL 10 MG TABLET PO SCH (08:20)
[2017-12-26] MEDS: DIVALPROEX SODIUM 500 MG DR TABLET PO SCH ×2 (08:21→16:35)
[2017-12-26] MEDS: NICOTINE 14 MG/24 HOUR PATCH TD SCH (08:21)
[2017-12-26] MEDS: LinaGLIPtin 5 MG TABLET PO SCH (08:21)
[2017-12-26] MEDS: GABAPENTIN 400 MG CAPSULE PO SCH ×3 (08:21→16:35)
[2017-12-26] MEDS: DULoxetine HCL 60 MG CAPSULE PO SCH (08:21)
[2017-12-26] MEDS: SERTRALINE HCL 100 MG TABLET PO SCH (08:21)
[2017-12-26 08:36] VITALS: BP 116/64
[2017-12-26] MEDS: LOPERAMIDE HCL 2 MG CAPSULE PO PRN (09:35)
[2017-12-26 13:24] LABS: GLUCOMETER DEV NAME(LOC) BV2S 2; GLUCOSE,POINT OF CARE 166 MG/DL (70-110)
[2017-12-26 16:12] VITALS: BP 102/64
[2017-12-26 16:58] LABS: GLUCOMETER DEV NAME(LOC) BV2S 2; GLUCOSE,POINT OF CARE 175 MG/DL (70-110)
[2017-12-26] MEDS: LORazepam 2 MG TABLET PO PRN (17:28)
[2017-12-26] MEDS: ATORVASTATIN CALCIUM 40 MG TABLET PO SCH (20:30)
[2017-12-26] MEDS: TraZODone HCL 100 MG TABLET PO SCH (20:30)
[2017-12-26] MEDS: RisperiDONE 2 MG TABLET PO SCH (20:30)
[2017-12-27 01:52] VITALS: BP 121/64
[2017-12-27] MEDS: INSULIN LISPRO 100 UNITS/ML SQ PRN ×3 (06:52→17:04)
[2017-12-27] MEDS: MetFORMIN HCL 500 MG TABLET PO SCH ×2 (06:52→17:10)
[2017-12-27] MEDS: LEVOTHYROXINE SODIUM 50 MCG TABLET PO SCH (06:52)
[2017-12-27 07:18] LABS: GLUCOMETER DEV NAME(LOC) BV2S 2; GLUCOSE,POINT OF CARE 178 MG/DL (70-110)
[2017-12-27 08:39] VITALS: BP 96/60
[2017-12-27] MEDS: NICOTINE 14 MG/24 HOUR PATCH TD SCH (09:00)
[2017-12-27] MEDS: SERTRALINE HCL 100 MG TABLET PO SCH (09:06)
[2017-12-27] MEDS: GABAPENTIN 400 MG CAPSULE PO SCH ×3 (09:06→17:10)
[2017-12-27] MEDS: LISINOPRIL 10 MG TABLET PO SCH (09:06)
[2017-12-27] MEDS: DIVALPROEX SODIUM 500 MG DR TABLET PO SCH ×2 (09:06→17:10)
[2017-12-27] MEDS: LinaGLIPtin 5 MG TABLET PO SCH (09:06)
[2017-12-27] MEDS: DULoxetine HCL 60 MG CAPSULE PO SCH (09:06)
[2017-12-27] MEDS: INSULIN GLARGINE,HUM.REC.ANLOG 100 UNITS/ML SQ SCH ×2 (10:12→17:04)
[2017-12-27 10:14] LABS: GLUCOMETER DEV NAME(LOC) BV2S 2; GLUCOSE,POINT OF CARE 221 MG/DL (70-110)
[2017-12-27] MEDS: LORazepam 2 MG TABLET PO PRN ×2 (11:12→17:26)
[2017-12-27 12:48] LABS: GLUCOMETER DEV NAME(LOC) BV2S 2; GLUCOSE,POINT OF CARE 200 MG/DL (70-110)
[2017-12-27 16:41] VITALS: BP 114/64
[2017-12-27 17:53] LABS: GLUCOMETER DEV NAME(LOC) BV2S 2; GLUCOSE,POINT OF CARE 162 MG/DL (70-110)
[2017-12-27] MEDS: ATORVASTATIN CALCIUM 40 MG TABLET PO SCH (20:36)
[2017-12-27] MEDS: RisperiDONE 2 MG TABLET PO SCH (20:36)
[2017-12-27] MEDS: TraZODone HCL 100 MG TABLET PO SCH (20:36)
[2017-12-27 23:39] LABS: GLUCOMETER DEV NAME(LOC) BV2S 2; GLUCOSE,POINT OF CARE 238 MG/DL (70-110)
[2017-12-28 01:35] VITALS: BP 112/67
[2017-12-28] MEDS: IBUPROFEN 400 MG TABLET PO PRN (01:38)
[2017-12-28 06:29] LABS: GLUCOMETER DEV NAME(LOC) BV2S 2; GLUCOSE,POINT OF CARE 145 MG/DL (70-110)
[2017-12-28] MEDS: LEVOTHYROXINE SODIUM 50 MCG TABLET PO SCH (07:00)
[2017-12-28] MEDS: MetFORMIN HCL 500 MG TABLET PO SCH (07:00)
[2017-12-28 08:32] VITALS: BP 109/66
[2017-12-28] MEDS: LISINOPRIL 10 MG TABLET PO SCH (08:55)
[2017-12-28] MEDS: LinaGLIPtin 5 MG TABLET PO SCH (08:55)
[2017-12-28] MEDS: GABAPENTIN 400 MG CAPSULE PO SCH ×2 (08:55→13:03)
[2017-12-28] MEDS: DULoxetine HCL 60 MG CAPSULE PO SCH (08:55)
[2017-12-28] MEDS: SERTRALINE HCL 100 MG TABLET PO SCH (08:55)
[2017-12-28] MEDS: NICOTINE 14 MG/24 HOUR PATCH TD SCH ×2 (08:55→13:03)
[2017-12-28] MEDS: DIVALPROEX SODIUM 500 MG DR TABLET PO SCH (08:55)
[2017-12-28 11:13] LABS: GLUCOMETER DEV NAME(LOC) BV2S 2; GLUCOSE,POINT OF CARE 127 MG/DL (70-110)
[2017-12-28] MEDS: INSULIN GLARGINE,HUM.REC.ANLOG 100 UNITS/ML SQ SCH (11:17)
[2017-12-28] MEDS ORDERED: DIVA-78 PO (15:43)
[2017-12-28] MEDS ORDERED: LEVO50TA11 PO (15:43)
[2017-12-28] MEDS ORDERED: DULO60CA44 PO (15:43)
[2017-12-28] MEDS ORDERED: INSLAN SQ (15:43)
[2017-12-28 16:10] VITALS: BP 106/60
== END 2017-12-28 16:20 | disposition home or self-care (01) | DRG 750 ==
LOC: B3A 20:23 → EDSTATUS 20:27 → B2S 22:22
PROVIDERS: ADMIT Psychiatry & Neurology Psychiatry; ATTEND Psychiatry & Neurology Psychiatry
DX: F25.9 Schizoaffective disorder, unspecified (principal); R45.851 Suicidal ideations; E87.1 Hypo-osmolality and hyponatremia; I10 Essential (primary) hypertension; Z59.0 Homelessness; E78.5 Hyperlipidemia, unspecified; E11.9 Type 2 diabetes mellitus without complications; E03.9 Hypothyroidism, unspecified; Z79.899 Other long term (current) drug therapy
CPT/HCPCS: 83036; 84436; 84439; 84443; 87081; J1815

== ENCOUNTER 2018-10-16 17:43 | Emergency (ER) | payer MEDICAID, OTHER ==
[~2018-10-16] VITALS: Ht 165.1 cm; Wt 81.8 kg
[~2018-10-16 17:43] MED LIST changes: +DIVA-78 PO; +DULO60CA44 PO; -GABA-529 PO; +GABA-533 PO; +INSLAN SQ; -INSU100I26 SQ; -LEVO25TA9 PO; +LEVO50TA11 PO; +METF-960 PO; -METF500T6 PO
[2018-10-16 19:29] LABS: BASOPHILS % (AUTO) 0.3 % (0.0-2.0); EOSINOPHILS % (AUTO) 0.1 % (1.0-6.0); HEMATOCRIT 37.1 % (36-46); HEMOGLOBIN 12.2 g/dL (12.0-16.0); LYMPHOCYTES # (AUTO) 1.4 K/uL (1.0-4.8); LYMPHOCYTES % (AUTO) 11.1 % (22.0-44.0); MEAN CORPUSCULAR HEMOGLOBIN 27.3 pg (26.0-34.0); MEAN CORPUSCULAR HGB CONC 32.9 G/dL (31.0-37.0); MEAN CORPUSCULAR VOLUME 83 fL (80-100); MONOCYTES # (AUTO) 0.6 K/uL (0.1-1.0); MONOCYTES % (AUTO) 4.6 % (2.0-9.0); NEUTROPHILS # (AUTO) 10.5 K/uL (1.8-7.7); NEUTROPHILS % (AUTO) 83.9 % (40.0-70.0); PLATELET COUNT (AUTO) 162 K/uL (150-450); RED BLOOD CELL COUNT(AUTO) 4.46 MIL/uL (4.00-5.20); RED CELL DISTRIBUTION WIDTH 14.7 % (11.5-14.5)
[2018-10-16 19:48] LABS: ALANINE AMINOTRANSFERASE 25 U/L (12-78); ALBUMIN 2.9 g/dL (3.4-5.0); ALKALINE PHOSPHATASE 202 U/L (46-116); ANION GAP 9 mmol/L (8-16); ASPARTATE AMINOTRANSFERASE 27 U/L (15-37); BILIRUBIN,TOTAL 0.3 mg/dL (0.1-1.0); CALCIUM, TOTAL 8.7 mg/dL (8.8-10.5); CARBON DIOXIDE 24 mmol/L (22-29); CHLORIDE 104 mmol/L (98-107); CREATININE 1.05 mg/dL (0.60-1.30); GLOMERULAR FILTR. RATE CALC 55 mL/min (>60); POTASSIUM 4.3 mmol/L (3.5-5.1); SODIUM SERUM 137 mmol/L (136-145); TOTAL PROTEIN, SERUM 6.4 g/dL (6.4-8.2); UREA NITROGEN, BLOOD 18 mg/dL (7-18)
[2018-10-16 19:50] LABS: GLUCOSE,RANDOM 442 mg/dL (70-110)
[2018-10-16] MEDS ORDERED: MetFORMIN HCL 500 MG TABLET PO ONE (22:30)
[2018-10-16] MEDS ORDERED: SODIUM CHLORIDE 0.9% 2,000 ML IV ONE (22:30)
[2018-10-17 00:14] LABS: GLUCOSE,POINT OF CARE 297 MG/DL (70-110)
[2018-10-17] MEDS ORDERED: SODIUM CHLORIDE 0.9% 1,000 ML IV ONE (00:30)
[2018-10-17 01:15] LABS: APPEARANCE,URINE CLEAR (CLEAR); BILIRUBIN,URINE NEGATIVE (NEGATIVE); GLUCOSE, URINE (UA) >=1000 mg/dL (NEGATIVE); KETONES,URINE NEGATIVE (NEGATIVE); LEUKOCYTE ESTERASE ,URINE NEGATIVE (NEGATIVE); NITRATE,URINE NEGATIVE (NEGATIVE); OCCULT BLOOD,URINE NEGATIVE (NEGATIVE); PROTEIN,URINE NEGATIVE (NEGATIVE); UROBILINOGEN,URINE 0.2 mg/dL (<=1.0)
[2018-10-17 01:17] LABS: AMPHET/METH SCREEN,URINE POSITIVE (NEGATIVE); BARBITURATE SCREEN, URINE NEGATIVE (NEGATIVE); BENZODIAZEPINES SCREEN,URINE NEGATIVE (NEGATIVE); CANNABINOID SCREEN,URINE POSITIVE (NEGATIVE); COCAINE SCREEN,URINE NEGATIVE (NEGATIVE); METHADONE SCREEN, URINE NEGATIVE (NEGATIVE); OPIATE SCREEN,URINE NEGATIVE (NEGATIVE)
[2018-10-17 01:18] LABS: PHENCYCLIDINE SCREEN,URINE NEGATIVE (NEGATIVE)
[2018-10-17 01:30] LABS: BACTERIA,URINE None Seen /HPF (None Seen); RBC,URINE 0-2 /HPF (0-2); SQUAMOUS EPITHELIAL CELL,UR Moderate /LPF (None Seen); WBC,URINE 0-2 /HPF (0-5)
[2018-10-17 02:37] VITALS: BP 124/62
== END 2018-10-17 02:38 | disposition home or self-care (01) ==
LOC: EMS 17:44
DX: S00.83XA Contusion of other part of head, initial encounter (principal); S70.12XA Contusion of left thigh, initial encounter; S80.11XA Contusion of right lower leg, initial encounter; E11.65 Type 2 diabetes mellitus with hyperglycemia; M54.9 Dorsalgia, unspecified; E03.9 Hypothyroidism, unspecified; F19.10 Other psychoactive substance abuse, uncomplicated; F41.9 Anxiety disorder, unspecified; F31.9 Bipolar disorder, unspecified; E78.00 Pure hypercholesterolemia, unspecified; F20.9 Schizophrenia, unspecified; Z91.14 Patient's other noncompliance with medication regimen; Z90.49 Acquired absence of other specified parts of digestive tract; Z79.899 Other long term (current) drug therapy; Y04.2XXA Assault by strike against or bumped into by another person, initial encounter; Y93.89 Activity, other specified; Y92.89 Other specified places as the place of occurrence of the external cause; Y99.8 Other external cause status
CPT/HCPCS: 36415; 70450; 70486; 72125; 80053; 80307; 81001; 82962; 85025; 96360; 96361; 99285; G0480; J7030